=== PATIENT | male | born 2000 | race Caucasian/White ===

== ENCOUNTER 2021-03-13 11:18 | Inpatient (IN) | payer OTHER, SELFPAY ==
[2021-03-13 11:46] VITALS: BP 159/104; PULSE 92; RESP 16; TEMP 36.7; O2SAT 97; BMI 28.0
--- NOTE | 2021-03-13 12:02 | ED_ITS ---
HPI - Psych General Chief Complaint: Psychiatric Symptoms Stated Complaint: Manic/bipolar Time Seen by Provider: 03/13/21 11:54 Source: patient Mode of arrival: ambulatory Limitations: no limitations History of Present Illness HPI Narrative: Patient comes to the emergency room via EMS. Patient was seen today by [facility], he was Section 12 for concerns of having a manic episode. Patient denies suicidal homicidal ideation. Patient states that he has been taking his medications as prescribed. However, he recently had a dose of risperidone change. According to the patient, he was sent to the hospital because he was being too loud and having an anxiety attack Related Data Allergies Allergy/AdvReac Type Severity Reaction Status Date / Time No Known Allergies Allergy Verified 03/13/21 12:02 Review of Systems Review of Systems: Constitutional : No Weight loss, No Fever, No Chills, No Night Sweats, No Fatigue, No Malaise ENT/Mouth : No Hearing loss, No Ear Pain, No Nasal Congestion, No Sinus Pain, No Hoarseness, No sore throat, No Rhinorrhea, No Swallowing Difficulty Eyes: No Eye Pain, No Swelling, No Redness, No Foreign Body, No Discharge, No Vision Changes Cardiovascular : No Chest Pain, No SOB, No Dyspnea on Exertion, No Orthopnea, No Edema, No Palpitations Respiratory : No Cough, No Sputum, No Wheezing, No Smoke Exposure, No Dyspnea Gastrointestinal : No Nausea, No Vomiting, No Diarrhea, No Constipation, No abdominal Pain, No Hematochezia, No Melena Genitourinary : no irregular bleeding, No Dysuria, No Urinary Frequency, No Hematuria, No Urinary Incontinence, No Urgency, No Flank Pain, No Urinary Flow Changes, No Hesitancy Musculoskeletal : No joint pain, No Myalgias, No Joint Swelling Skin : No Skin Lesions, No rash Neuro : No Weakness, No Numbness, No Paresthesias, No Loss of Consciousness, No Dizziness, No Headache Psych : Complaining of anxiety, denies SI or HI Heme/Lymph: No Bruising, No Bleeding,No Lymphadenopathy Endocrine : No Polyuria, No Polydipsia, No Temperature Intolerance PMF Past Medical History Medical History (Updated 03/13/21 @ 13:38 by Kailee Hall MD) Bipolar disorder Social History Social History Advance Directives: No Advance Directives Information Provided: Yes Physical Exam Vital Signs: Vital Signs: Last Vital Signs Temp 98.1 F 03/13/21 11:46 Pulse 92 03/13/21 11:46 Resp 16 03/13/21 11:46 BP 159/104 H 03/13/21 11:46 Pulse Ox 97 03/13/21 11:46 BMI result Body Mass Index 28.0 Const: Other: Appearance: Alert. Oriented X3. No acute distress. Eyes: Pupils equal, round and reactive to light. ENT: Pharynx normal. Neck: Normal inspection. Neck supple. No lymph nodes noted. No crepitus CVS: Normal heart rate and rhythm. Pulses normal. Normal S1 and S2 Respiratory: No respiratory distress. Breath sounds normal. No Wheezing. No rales Abdomen: Soft and nontender. No rigidity. No distention. Skin: Skin warm and dry. Normal skin color. Normal skin turgor. Extremities: No lower extremity edema. No lower extremity edema. No Lacerations. No Rash Neuro: Oriented X 3. No motor deficit. No sensory deficit. Moving all exte rmities. No slurred speech. Cranial nerves 2-12 grossly intact Psych: Calm, cooperative, seems a bit anxious. Pressured speech, talking in tangents Course Course Course Narrative: [facility] pending. Physician of sedation started at 12:10 Patient's COVID test returned, patient is positive for COVID-19 MDM - Psych Lab Data Labs: Lab Results 03/13/21 Range/Units 12:24 COVID-19 ([facility]) Positive A (Negative) COVID-19 Clin Com See Note Discharge Plan Discharge Clinical Impression: Manic behavior, COVID-19 Patient Disposition: Still a Patient
--- NOTE | 2021-03-13 12:28 | PC.NURSE ---
pt section [address] [facility] due to concerns of pt experiencing manic episode. pt recently had a dose change of his Risperidone and reports having racing thoughts since the change. pt reports he has been compliant with taking all his prescriptive meds. pt seen by Dr. Hall Diogenes consult submitted. he denies SI/HI. pt pacing, denies pain. will continue to monitor.
[2021-03-13 12:39] LABS: COVID-19 Test Positive (Negative)
--- NOTE | 2021-03-13 13:40 | PC.NURSE ---
Pt COVID +. Dr. Hall, Care Team, Charge Nurse aware. Dr. Hall at pt's bedside.
--- NOTE | 2021-03-13 14:07 | PC.NURSE ---
pt asked to remain in his room, pt pacing in and out of his room, pt reminded of reason he was asked to remain in his room.
[2021-03-13] MEDS: LORazepam 1 MG TABLET 2 MG PO (14:22)
--- NOTE | 2021-03-13 14:25 | PC.NURSE ---
pt pacing throughout unit, reminded to stay in his room. pt offered med for anxiety. med given as documented. will continue to monitor.
[2021-03-13 18:33] VITALS: BP 148/91; PULSE 110; RESP 16; O2SAT 98
--- NOTE | 2021-03-13 18:33 | PC.NURSE ---
Addendum entered by Tisha Bartlett 03/13/21 18:34: Denies SI/HI Pt observer at bedside Original Note: Spoke to mother Svetlana (with permission of pt), updated on plan of care. Pt asleep mostly s/p Ativan given by prior RN
--- NOTE | 2021-03-13 19:38 | PC.NURSE ---
pt resting in stretcher w/o distress, wakes to voice. Respirations easy, n/l. skin w/d. will continue to monitor pt.
[2021-03-13 23:25] VITALS: BP 129/76; PULSE 84; RESP 18; O2SAT 98
--- NOTE | 2021-03-14 01:11 | PC.NURSE ---
med rec done and being approved by . Pt is requesting Risperdone. pt in NAD. will continue to monitor pt.
[2021-03-14] MEDS: traZODone HCL 50 MG TABLET PO ×2 (02:02→20:01)
[2021-03-14] MEDS: Melatonin 3 MG TABLET PO ×2 (02:02→20:00)
[2021-03-14] MEDS: risperiDONE 1 MG TABLET PO ×3 (02:02→20:00)
[2021-03-14] MEDS: hydrOXYzine HCL 25 MG TABLET PO ×3 (02:02→20:00)
--- NOTE | 2021-03-14 16:10 | PC.NURSE ---
called pharmacy for missing med metformin.
[2021-03-14] MEDS: metFORMIN HCl ER 500 MG TAB.ER.24H PO (18:22)
[2021-03-14 19:55] VITALS: BP 147/94; PULSE 110; RESP 19; TEMP 36.6; O2SAT 96
--- NOTE | 2021-03-14 23:23 | PC.NURSE ---
Pt ambulatory with steady, independent gait, offers no complaints of pain/discomfort.
--- NOTE | 2021-03-15 01:20 | PC.NURSE ---
Pt dancing in room at this time, offers no complaints/concerns.
[2021-03-15 04:08] VITALS: BP 129/71; PULSE 65; RESP 17; O2SAT 98
[2021-03-15 04:29] LABS: Amphetamine Screen Urine Not Detected (Not Detect); Barbiturates, Urine Not Detected (Not Detect); Benzodiazepines Screen Urine Not Detected (Not Detect); Cannabinoid Screen Urine Not Detected (Not Detect); Cocaine Screen Urine Not Detected (Not Detect); Fentanyl, urine POSITIVE (Not Detect); Opiate Screen Urine Not Detected (Not Detect); Phencyclidine Screen Urine Not Detected (Not Detect)
--- NOTE | 2021-03-15 06:17 | PC.NURSE ---
Per lonnie, pt has not slept throughout night. This RN advocating for additional meds to Dr Barton, this RN requesting additional meds to help tx kvng. Per Dr Barton, she will place orders for additional meds shortly
--- NOTE | 2021-03-15 07:58 | PC.NURSE ---
pt is awake, was pacing. Pleasant, redirectable. Plan is to transfer to pod for further care.
[2021-03-15] MEDS: hydrOXYzine HCL 25 MG TABLET PO ×2 (09:14→20:46)
[2021-03-15] MEDS: risperiDONE 1 MG TABLET PO (09:14)
--- NOTE | 2021-03-15 13:13 | PM.PSYCN ---
History of Present Illness Date of Service: 03/15/21 Chief Complaint: Manic/bipolar Reason for Consult: Medication Requesting physician: Kailee Hall Discussed with referring provider: Yes Sources of Information: patient interviewed, chart reviewed and crisis/core team assessment reviewed HPI Narrative: Amanda is a 21 y.o. Male who carries a dx of Bipolar I DO. He presented to [facility] ED on 03/13 via EMS after being evaluated by N crisis in the community and placed on a Section 12a for manic sx in context of med non-adherence, as pt stopped taking depakote and self decreased risperdal from 1 mg BID to risperdal 1 mg QHS. Per pt, he is in the hospital because he was being ?too loud? and he was having an anxiety attack. In the ED, pt is found to be pacing around, dancing. Pt reports stressors as his dad telling him he needs to enroll in college and get a job. Currently COVID positive. I evaluated the pt this afternoon and upon interview, he reports ?Mentally, I havent slept properly in the past 4 weeks.? Says he can sleep ?on and off,? and typically he sleeps every other night. Pt is found dancing in his room, energy is ?way too high.? Pt is tangential and easily distracted, starts discussing social media use unprompted, hypervebal. Pt endorses paranoid ideations, stating ?everyone is out to get me.? Initially says he self decreased risperdal due to it being back ordered, however also says he stopped depakote and went down in risperdal due to concerns with wt gain. Pt states he won?t stop dancing because he does not want to gain weight, as in the past he gained ?70 lbs in a month without even trying.? Says he is willing to re-start medications, as they ?calm me down.? Says ?I know im gonna have to take bipolar pills for rest of life so i dont have an outburst in public.? Denies hallucinations, however says ?I might have saw a ghost a year ago.? Mood is ?too high? and that ?I should be tired.? Pt endorses grandiose thoughts, stating ?its like I have super hall but not the right kind,? and believes he has the power of ?invisibility and mind reading.? Pt says he would like to be ?famous but for the right reasons.? Denies self harm or SI. Graduated [employer] h.[employer]., tried [employer] for college but couldnt finish any semester due to anxiety attacks.? Past Psychiatric History: -Pt has hx of IPLOC at [facility] 12/2019 and 02/2020. -Per [facility] crisis eval 02/15/20, pt presented with ?decompensated behaviors,? disposition was IPLOC. Evaluated 12/2019 due to ?responding to internal stimuli and not making sense.? Disposition was IPLOC. Medical Evaluation Reviewed: Yes [facility] Medical History (Updated 03/17/21 @ 11:55 by Majo Douglass NP) Bipolar disorder Narrative: -Pt says he takes metformin with antipsychotics because his dad has diabetes, however pt does not have a diagnosis of T2DM. -Pt is unemployed, says he has had difficulty sustaining employment and would like to be a dancer. However, says ?Im not mentally there to work a job.? Social History: -Pt lives with mom and sister (age 23), visits dad on weekends. Lived with both parents until age 7, then parents split up. -Graduated from [employer] school. He attended [employer] for 3 semesters, but says he did poorly in school and did not finish. Attributes this to anxiety and poor focus, ?I focused on the wrong things,? i.e. says he went ?viral on tik tok.? Had been computer science major. Substance History: -Denies substance or alcohol use Diagnostics Vital Signs (24Hr): Vital Signs - 24 hr 03/14/21 19:55 03/15/21 04:08 Temperature 97.9 F Pulse Rate 110 H 65 Respiratory Rate 19 17 Blood Pressure 147/94 H 129/71 Pulse Oximetry 96 98 BMI result Body Mass Index 28.0 Labs Results: 03/15/21 15:49 03/15/21 15:49 Labs: Laboratory Results - last 48 hr 03/15/21 03:57 Urine Opiates Screen Not Detected Urine Fentanyl Screen POSITIVE H Ur Barbiturates Screen Not Detected Ur Phencyclidine Scrn Not Detected Ur Amphetamines Screen Not Detected U Benzodiazepines Scrn Not Detected Urine Cocaine Screen Not Detected U Marijuana (THC) Screen Not Detected Mental Status Exam Mental Status Exam Narrative: A&O. Pt is found in ED pod, dancing, in hospital attire, good hygiene. Good eye contact, inattentive. No Tics or Tremors. Has increased psychomotor activity. No abnormal involuntary movements. Activated but cooperative, engaged. Has pressured speech, spontaneous with regular rate and rhythm, normal volume and prosody. No prolonged speech latency or dysarthria. Mood is ?too high,? affect is bright, activated. Denies SI/SIB/HI upon inquiry. Denies A/VH. Thoughts are tangential, racing, grandiose delusions. No known cognitive or memory impairment. Insight/ Judgment limited but adequate. Medications Medications Current Medications Hydroxyzine HCl (Hydroxyzine Hcl 25 Mg Tablet) 25 mg PO BID [facility] Last Admin: 03/15/21 09:14 Dose: 25 mg Documented by: Melatonin (Melatonin 3 Mg Tablet) 3 mg PO BEDTIME [facility] Last Admin: 03/14/21 20:00 Dose: 3 mg Documented by: Metformin HCl (Metformin Hcl Er 500 Mg Tab.Er.24h) 500 mg PO DAILY@1700 [facility] Last Admin: 03/14/21 18:22 Dose: 500 mg Documented by: Risperidone (Risperidone 1 Mg Tablet) 1 mg PO BID [facility] Last Admin: 03/15/21 09:14 Dose: 1 mg Documented by: Trazodone HCl (Trazodone Hcl 50 Mg Tablet) 50 mg PO BEDTIME [facility] Last Admin: 03/14/21 20:01 Dose: 50 mg Documented by: Allergies Allergies Allergy/AdvReac Type Severity Reaction Status Date / Time No Known Allergies Allergy Verified 03/13/21 12:02 Assessment & Plan Assessment & Plan (1) Bipolar 1 disorder: Status: Acute Code(s): F31.9 - Bipolar disorder, unspecified Assessment and Plan: Amanda is a 21 y.o. Male who carries a dx of Bipolar I DO. He presented to [facility] ED on 03/13 via EMS after being evaluated by N crisis in the community and placed on a Section 12a for manic sx in context of med non-adherence, as pt stopped taking depakote and self decreased risperdal from 1 mg BID to risperdal 1 mg QHS. Evonne requested for med management, as pt is currently being quarantined in ED BH pod with COVID 19 diagnosis. Plan: Pt is willing to restore previous med regimen to target sx of kvng. Will re-increase riserpdal to 2 mg QHS and re-start depakote ER 500 mg QAM. Ordered labs for CMP, CBC. Will order VPA level in 2-3 days. -Continue monitoring medically. Patient is currently medically cleared. -Consult requested for med management -Patient cannot leave AGAINST MEDICAL ADVICE. -Care Team evaluation for bed search initial treatments ordered collateral history needed ? I spent minutes with the patient and/or on the patient floor today, greater than?50% of which was spent counseling/coordinating care.
[2021-03-15 15:58] LABS: Basophils Percent Auto 0.3 % (0-2); Eosinophils Absolute Auto 0.1 X10*3/uL (0.0-0.4); Eosinophils Percent Auto 2.4 % (0-4); Hematocrit 45.6 % (42.0-52.0); Hemoglobin 16.2 g/dl (14.0-18.0); Imm Gran Abs Auto 0.01 X10*3/uL (0.00-0.03); Imm Gran Pct Auto 0.3 % (0.0-0.4); Lymphocytes Absolute Auto 1.3 X10*3/uL (1.2-4.9); MANUAL DIFF FLAG NO; Mean Corpuscular HGB Conc 35.5 g/dl (31.0-36.0); Mean Corpuscular Hemoglobin 29.8 pg (27.0-33.0); Mean Platelet Volume 10.7 fL (9.4-12.4); Monocytes Absolute Auto 0.6 X10*3/uL (0.1-1.2); Monocytes Percent Auto 17.9 % (2-11); Neutrophils Absolute Auto 1.4 x10*3/uL (2.0-8.3); Neutrophils Percent Auto 40.1 % (45-73); Platelet Count 236 X10*3/uL (160-400); Red Blood Count 5.43 X10*6/uL (4.60-5.80); Red Cell Distribution Width 12.1 % (11.0-16.0); White Blood Count 3.4 X10*3/uL (4.8-10.8)
[2021-03-15 16:17] LABS: Alanine Aminotransferase 44 U/L (0-40); Albumin Level 4.5 g/dL (3.5-5.0); Alkaline Phosphatase 90 U/L (39-117); Anion Gap 13 (12-20); Aspartate Amino Transferase 38 U/L (5-37); Bilirubin Total 0.7 mg/dL (0.0-1.0); Blood Urea Nitrogen 7 mg/dL (9-16); Calcium 10.2 mg/dL (8.4-10.2); Carbon Dioxide 25 mmol/L (22-29); Chloride 104 mmol/L (96-108); Creatinine Clr Calc Pharmacy 156.8; Estimated Glomerular Filt Rate > 60; Glucose Random 115 mg/dL (60-115); Potassium 4.1 mmol/L (3.3-5.1); Sodium 138 mmol/L (135-145); Total Protein 7.4 g/dL (6.5-8.0)
[2021-03-15 17:03] VITALS: BP 158/110; PULSE 105; TEMP 37.1; O2SAT 97
[2021-03-15] MEDS: metFORMIN HCl ER 500 MG TAB.ER.24H PO (17:27)
[2021-03-15] MEDS: Divalproex Sodium ER 500 MG TAB.ER.24H PO (20:45)
[2021-03-15] MEDS: risperiDONE 2 MG TABLET PO (20:46)
[2021-03-15] MEDS: Melatonin 3 MG TABLET PO (20:46)
[2021-03-15] MEDS: traZODone HCL 50 MG TABLET PO (20:46)
[2021-03-16 04:51] VITALS: BP 147/89; PULSE 112; RESP 18; TEMP 36.6; O2SAT 97
--- NOTE | 2021-03-16 05:58 | PC.NURSE ---
Patient slept through the night, no distress observed/reported, behavior cooperative and non concerning at this time, follows direction well, medication compliant, patient's disposition per [facility] is section 12 inpatient bed search, patient is still covid positive, no update on bed search, will continue to monitor.
[2021-03-16] MEDS: hydrOXYzine HCL 25 MG TABLET PO (08:07)
--- NOTE | 2021-03-16 08:10 | PC.NURSE ---
Pt received: Pt AOX4 and noted to be slightly anxious. Scheduled medications given at this time. Pt tolerated breakfast. Pt offers no complaints at this time. Pt remains section 12 and penidng bed search.
--- NOTE | 2021-03-16 14:14 | PC.NURSE ---
Pt's mother called for update: Svetlana ([phone])
[2021-03-16] MEDS: metFORMIN HCl ER 500 MG TAB.ER.24H PO (17:00)
[2021-03-16 20:02] LABS: COVID-19 Test Positive (Negative)
[2021-03-16 20:22] VITALS: BP 148/90; PULSE 97; TEMP 37.1; O2SAT 98
[2021-03-16] MEDS: risperiDONE 2 MG TABLET PO (20:46)
[2021-03-16] MEDS: Divalproex Sodium ER 500 MG TAB.ER.24H PO (20:46)
[2021-03-16] MEDS: Melatonin 3 MG TABLET PO (20:46)
[2021-03-16] MEDS: hydrOXYzine HCL 50 MG TABLET PO (20:46)
[2021-03-17 06:38] VITALS: BP 158/71; PULSE 84; RESP 16; TEMP 37.1; O2SAT 99
--- NOTE | 2021-03-17 07:20 | PC.NURSE ---
patient appeared to remain asleep at beginning of shift, respirations are even and unlabored, patient appears in no distress
[2021-03-17] MEDS: hydrOXYzine HCL 50 MG TABLET PO ×2 (08:22→20:25)
[2021-03-17 10:02] VITALS: BP 121/85; PULSE 81; RESP 14; O2SAT 93
[2021-03-17] MEDS: metFORMIN HCl ER 500 MG TAB.ER.24H PO (17:06)
[2021-03-17] MEDS: Divalproex Sodium ER 500 MG TAB.ER.24H PO (20:25)
[2021-03-17] MEDS: Melatonin 3 MG TABLET PO (20:25)
[2021-03-17] MEDS: risperiDONE 2 MG TABLET PO (20:25)
[2021-03-17] MEDS: LORazepam 1 MG TABLET 2 MG PO (20:25)
[2021-03-18 05:11] VITALS: BP 122/67; PULSE 65; RESP 16; TEMP 36.7; O2SAT 100
--- NOTE | 2021-03-18 05:26 | PC.NURSE ---
Patient slept through the night, no distress observed/reported, behavior non concerning and cooperative, medication compliant, VSS, appetite good, elimination intact, patient's disposition is section 12 inpatient bed search, no update on bed search due to patient being covid +, will continue to monitor.
--- NOTE | 2021-03-18 07:02 | PC.NURSE ---
patient appears to remain asleep at present, respirations are even and unlabored, patient appears in no distress
[2021-03-18] MEDS: hydrOXYzine HCL 50 MG TABLET PO ×2 (09:33→22:31)
[2021-03-18 14:11] VITALS: BP 116/76; PULSE 91; RESP 18; TEMP 36.7; O2SAT 96
[2021-03-18 17:00] VITALS: BP 133/85; PULSE 85; TEMP 36.4; O2SAT 96
[2021-03-18 17:43] LABS: Glucose, Whole Blood 85 mg/dL (60-115)
[2021-03-18] MEDS: metFORMIN HCl ER 500 MG TAB.ER.24H PO (17:46)
[2021-03-18] MEDS: Melatonin 3 MG TABLET PO (22:31)
[2021-03-18] MEDS: Divalproex Sodium ER 500 MG TAB.ER.24H PO (22:32)
[2021-03-18] MEDS: risperiDONE 2 MG TABLET PO (22:32)
--- NOTE | 2021-03-19 00:41 | PC.ADMIT ---
A single, white male aged 21 years was [facility] at 1512 following referral from [facility] and [facility]. Pt was assessed at [facility] respite and transported to [facility] ED via EMS and section 12 due to presenting in a manic state following recent stressors and a medication change. This pt's first admission here; pt reports prior admissions at [facility] and [facility] in 2019. Pt reported weight gain following starting risperdal and depakote; pt added that he had lost 30lbs intentionally since August/c of this weght gain. Pt reported an increase in kvng in January, and that he had a recent breakup with his boyfriend, his first significant relationship. Pt reported feeling trauma in his past related to his parents divorce at age 8 years and from witnessing the unexpected of his cat at around the same time. Pt reported moderate anxiety and depression. Pt said he has experienced rapid cycling of his mood while he has been in the hospital. Pt denied AH/VH and SI/HI. Pt said he can seek out staff for help. Pt said he was getting services from [facility] up until January. Pt sated he is interested in having a psychiatrist and therapist after discharge. Pt stated as he is 21 now, he wants to take responsibility for taking care of his Bipolar d/o. Pt expressed he would like to go back to school at [employer] for veterinary studies, but recognizes the importance of maintaining his illness to pursue his goals. Pt was calm ad cooperative during admission. Pt denies Etoh or substance issues, but HELMS was positive for Fentanyl. Pt denies medical issues at this time. Pt was found to be positive for Covid 19, but is asymptomatic at this time. Pt is resting in group room B on equipment observation. [id number] done, initial treatment plan done and admission orders obtained.
[2021-03-19 06:00] VITALS: BP 139/85; PULSE 90; RESP 16; TEMP 36.2; O2SAT 97
[2021-03-19] MEDS: hydrOXYzine HCL 50 MG TABLET PO ×2 (08:52→21:30)
[2021-03-19 09:40] LABS: Glucose, Whole Blood 80 mg/dL (60-115)
--- NOTE | 2021-03-19 10:34 | P.HPPS_ITS ---
HPI Date of Service: 03/19/21 Chief Complaint: psychiatric symptoms Sources of Information: patient interviewed, chart reviewed and crisis/core team assessment reviewed HPI Subjective Notes: Khan Warning and Conditional Voluntary Healthcare Proxy: No Guardianship: No Medical Problems Affecting Mental Status: Yes Narrative: Pt presented to ED with kvng.Pt was sectioned 12 after being evaluated by crisis. His mental staus may be effected by being covid positive. He reports he mixed up his medication and may have missed some doses. He verbalizes that when he takes his medications correctly he knows they help. pt is covid positive. He Past Psychiatric History: -Pt has hx of IPLOC at [facility] 12/2019 and 02/2020. -Per [facility] crisis eval 02/15/20, pt presented with ?decompensated behaviors,? disposition was IPLOC. Evaluated 12/2019 due to ?responding to internal stimuli and not making sense.? Disposition was IPLOC. Medical Evaluation Reviewed: Yes covid positive. [facility] Medical History (Updated 03/17/21 @ 11:55 by Majo Douglass NP) Bipolar disorder Narrative: no outpatient providers at this time he would like to have prescriebr and therapist Social History: -Pt lives with mom and sister (age 23), visits dad on weekends. Lived with both parents until age 7, then parents split up. -Graduated from [email or web address] school. He attended [employer] for 3 semesters, but says he did poorly in school and did not finish. Attributes this to anxiety and poor focus, ?I focused on the wrong things,? i.e. says he went ?viral on tik tok.? Had been computer science major. Substance History: denies Trauma History: denies Diagnostics Vital Signs (24Hr): Vital Signs - 24 hr 03/18/21 14:11 03/18/21 17:00 03/19/21 06:00 Temperature 98.1 F 97.5 F 97.1 F Pulse Rate 91 85 90 Respiratory Rate 18 16 Blood Pressure 116/76 133/85 139/85 Pulse Oximetry 96 96 97 BMI result Body Mass Index 28.0 Labs Results: 03/15/21 15:49 03/15/21 15:49 Labs: Laboratory Results - last 48 hr 03/18/21 03/19/21 16:58 09:07 POC Glucose 85 80 Meds/Allergies Meds Home Medications Acetaminophen (Acetaminophen 325 Mg Tablet) 650 mg PO Q6H PRN PRN Reason: Headache/Pain Mild Scale (1-3) Al Hydroxide/Mg Hydroxide (Magnesium Hydrox/Alum Hydrox 30 Ml Oral.Susp) 30 ml PO Q6H PRN PRN Reason: Heartburn/Nausea Divalproex Sodium (Divalproex Sodium Er 500 Mg Tab.Er.24h) 500 mg PO BEDTIME [facility] Last Admin: 03/18/21 22:32 Dose: 500 mg Documented by: Hydroxyzine HCl (Hydroxyzine Hcl 50 Mg Tablet) 50 mg PO BID [facility] Last Admin: 03/19/21 08:52 Dose: 50 mg Documented by: Lorazepam (Lorazepam 1 Mg Tablet) 2 mg PO BEDTIME PRN PRN Reason: agitation, anxiety Last Admin: 03/17/21 20:25 Dose: 2 mg Documented by: Magnesium Hydroxide (Milk Of Magnesia 30 Ml Oral.Susp) 30 ml PO DAILY PRN PRN Reason: Constipation Melatonin (Melatonin 3 Mg Tablet) 3 mg PO BEDTIME [facility] Last Admin: 03/18/21 22:31 Dose: 3 mg Documented by: Metformin HCl (Metformin Hcl Er 500 Mg Tab.Er.24h) 500 mg PO DAILY@1700 [facility] Last Admin: 03/18/21 17:46 Dose: 500 mg Documented by: Risperidone (Risperidone 2 Mg Tablet) 2 mg PO BEDTIME [facility] Last Admin: 03/18/21 22:32 Dose: 2 mg Documented by: Allergies Allergies Allergy/AdvReac Type Severity Reaction Status Date / Time No Known Allergies Allergy Verified 03/13/21 12:02 Mental Status Exam Mental Status Exam Narrative: A&O. Pt is sitting in hospital bed in group room B. He is alert and calm. He has mildly pressured speech. He is able to listen at times. and is able to be interrupted. good hygiene. Good eye contact, attentive. No Tics or Tremors. No abnormal involuntary movements. Activated but cooperative, engaged. Speech is spontaneous with regular rate and rhythm, normal volume and prosody. No prolonged speech latency or dysarthria. Mood is bright, activated. Denies SI/SIB/HI upon inquiry. Denies A/VH. Thoughts arelogical and coherent. He reports feeling safe and well taken care of on unti. No grandiose ideas expressed. No known cognitive or memory impairment. Insight/ Judgment limited but adequate. He is able to say he is better when on meds adn wants treatment Assessment & Plan Assessment & Plan (1) Bipolar 1 disorder: Status: Acute Code(s): F31.9 - Bipolar disorder, unspecified Assessment and Plan: Amanda is a 21 y.o. Male who carries a dx of Bipolar I DO. He presented to [facility] ED on 03/13 via EMS after being evaluated by N crisis in the community and pl aced on a Section 12a for manic sx in context of med non-adherence, as pt stopped taking depakote and self decreased risperdal from 1 mg BID to risperdal 1 mg QHS. Plan: CV 15 min checks on 1:1 due to in group room B for quarantine/isolation precautions riserpdal to 2 mg QHS depakote ER 500 mg QAM. Ordered labs for CMP, CBC, VPA level, A1C, lipid panel TSH aftercare planning with and team Continue monitoring medically. ? Patient educated on: diagnosis, medication risk/benefits and therapeutic strategies Informed Consent: understands and further education needed Reason for continued inpatient stay Substantial Risk for: inability to function, rapid decompensation and med/psych decompensation
[2021-03-19] MEDS: metFORMIN HCl ER 500 MG TAB.ER.24H PO (17:50)
[2021-03-19] MEDS: risperiDONE 2 MG TABLET PO (21:30)
[2021-03-19] MEDS: Divalproex Sodium ER 500 MG TAB.ER.24H PO (21:30)
[2021-03-19] MEDS: Melatonin 3 MG TABLET PO (21:30)
[2021-03-19 22:00] VITALS: BP 132/59; PULSE 83; TEMP 36.8; O2SAT 100
[2021-03-20] MEDS: hydrOXYzine HCL 50 MG TABLET PO ×2 (09:30→22:12)
[2021-03-20 15:00] VITALS: BP 120/66; PULSE 82; TEMP 36.3; O2SAT 99
[2021-03-20 17:22] LABS: Glucose, Whole Blood 104 mg/dL (60-115)
[2021-03-20 18:07] LABS: MANUAL DIFF FLAG NO
[2021-03-20] MEDS: metFORMIN HCl ER 500 MG TAB.ER.24H PO (18:26)
[2021-03-20 18:36] LABS: Alanine Aminotransferase 49 U/L (0-40); Albumin Level 4.3 g/dL (3.5-5.0); Alkaline Phosphatase 79 U/L (39-117); Anion Gap 10 (12-20); Aspartate Amino Transferase 24 U/L (5-37); Bilirubin Direct < 0.2 mg/dL (0.0-0.5); Bilirubin Total 0.3 mg/dL (0.0-1.0); Blood Urea Nitrogen 9 mg/dL (9-16); Calcium 9.9 mg/dL (8.4-10.2); Carbon Dioxide 31 mmol/L (22-29); Chloride 105 mmol/L (96-108); Cholesterol 123 mg/dL; Creatinine Clr Calc Pharmacy 149.5; Estimated Glomerular Filt Rate > 60; Glucose Random 94 mg/dL (60-115); HDL Cholesterol 32 mg/dL; LDL Cholesterol Calculated 71 mg/dl; Potassium 4.2 mmol/L (3.3-5.1); Sodium 142 mmol/L (135-145); Total Protein 6.9 g/dL (6.5-8.0); Triglycerides 103 mg/dL
[2021-03-20 18:37] LABS: Basophils Percent Auto 0.5 % (0-2); Eosinophils Absolute Auto 0.1 X10*3/uL (0.0-0.4); Eosinophils Percent Auto 2.3 % (0-4); Hematocrit 49.5 % (42.0-52.0); Hemoglobin 17.2 g/dl (14.0-18.0); Imm Gran Abs Auto 0.02 X10*3/uL (0.00-0.03); Imm Gran Pct Auto 0.5 % (0.0-0.4); Lymphocytes Absolute Auto 1.4 X10*3/uL (1.2-4.9); Lymphocytes Percent Auto 31.7 % (20-40); Mean Corpuscular HGB Conc 34.7 g/dl (31.0-36.0); Mean Corpuscular Hemoglobin 30.2 pg (27.0-33.0); Mean Corpuscular Volume 86.8 fL (80.0-98.0); Mean Platelet Volume 11.2 fL (9.4-12.4); Monocytes Absolute Auto 0.4 X10*3/uL (0.1-1.2); Monocytes Percent Auto 8.9 % (2-11); Neutrophils Absolute Auto 2.5 x10*3/uL (2.0-8.3); Neutrophils Percent Auto 56.1 % (45-73); Platelet Count 277 X10*3/uL (160-400); Red Cell Distribution Width 12.5 % (11.0-16.0); White Blood Count 4.4 X10*3/uL (4.8-10.8)
[2021-03-20 18:41] LABS: Valproate 52.2 mcg/mL (50.0-100.0)
[2021-03-20 19:58] LABS: COVID-19 Test Positive (Negative)
[2021-03-20] MEDS: Divalproex Sodium ER 500 MG TAB.ER.24H PO (22:12)
[2021-03-20] MEDS: Melatonin 3 MG TABLET PO (22:12)
[2021-03-20] MEDS: risperiDONE 2 MG TABLET PO (22:12)
[2021-03-20 22:23] VITALS: BP 128/82; PULSE 73; TEMP 36.1; O2SAT 97
[2021-03-21 03:34] LABS: Estimated Average Glucose 94 mg/dL; Hemoglobin A1c % 4.9 %
[2021-03-21 06:00] VITALS: BP 155/65; PULSE 75; RESP 14; TEMP 36.3; O2SAT 96
[2021-03-21] MEDS: hydrOXYzine HCL 50 MG TABLET PO ×2 (09:23→21:28)
[2021-03-21] MEDS: metFORMIN HCl ER 500 MG TAB.ER.24H PO (17:33)
[2021-03-21 17:55] LABS: Glucose, Whole Blood 77 mg/dL (60-115)
--- NOTE | 2021-03-21 20:05 | HO.PSYCHPN ---
Subjective Subjective Date of Service: 03/20/21 Reason For Visit: psychiatric symptoms Subjective Notes: Conditional Voluntary Healthcare Proxy: No Guardianship: No Medical Problems Affecting Mental Status: No Interim History: Pt remains in isolation and on one to one due to being COVID positive. Accepting medications, reports he feels he is doing OK-anxious to come out of precautions to join milieu, groups, and receive treatment with peers. Denies medication SE or issues. Medication Compliance: Yes Side effects from medications: No Attending Groups: No Review of Systems Acute medical concerns: Yes COVID +, asymptomatic Medical Review of Systems: unchanged Review of Systems Psychiatric: Reports anxiety, Reports difficulty concentrating and Reports mood swings Mental Status Exam Mental Status Exam Patient Appearance: Appropriate Patient Orientation: Person, Place, Time and Situation Level of Consciousness: Alert Patient Behavior: Talkative, Cooperative and Good Eye Contact Mood Description: Anxious and Apprehensive Affect Description: Anxious, Labile and Apprehensive Patient Cognition Impaired: No Ability to Follow Directions: Good Speech Pattern: Spontaneous Speech Memory Description: Intact Hallucinations: None Delusions: Not Present Perceptual Disturbances: Derealization Thought Process: Distracted Thought Content: positive for Perseveration Depressive Symptoms: Increased Anxiety, Diff. Making Decisions and Difficulty Concentrating Judgement: Fair Diagnostics Vital Signs (24Hr): Vital Signs - 24 hr 03/20/21 22:23 03/21/21 06:00 Temperature 96.9 F 97.4 F Pulse Rate 73 75 Respiratory Rate 14 Blood Pressure 128/82 155/65 H Pulse Oximetry 97 96 BMI result Body Mass Index 28.0 Labs Results: 03/20/21 18:02 03/20/21 18:02 Labs: Laboratory Results - last 48 hr 03/20/21 03/20/21 03/20/21 17:05 18:02 18:02 WBC 4.4 L RBC 5.70 Hgb 17.2 Hct 49.5 MCV 86.8 MCH 30.2 MCHC 34.7 RDW 12.5 Plt Count 277 MPV 11.2 Immature Gran % (Auto) 0.5 H Neut % (Auto) 56.1 Lymph % (Auto) 31.7 [place] % (Auto) 8.9 Eos % (Auto) 2.3 Baso % (Auto) 0.5 Lymph # (Auto) 1.4 [place] # (Auto) 0.4 Eos # (Auto) 0.1 Baso # (Auto) 0.0 Abs Immat Gran (auto) 0.02 Absolute Neuts (auto) 2.5 Absolute Nucleated RBC 0.000 Nucleated RBC % (auto) 0.0 Sodium 142 Potassium 4.2 Chloride 105 Carbon Dioxide 31 H Anion Gap 10 L BUN 9 Creatinine 0.85 Estim Creat Clear Calc 149.5 Estimated GFR > 60 POC Glucose 104 Random Glucose 94 Estimat Average Glucose Hemoglobin A1c % Calcium 9.9 Total Bilirubin 0.3 Direct Bilirubin < 0.2 AST 24 ALT 49 H Alkaline Phosphatase 79 Total Protein 6.9 Albumin 4.3 Triglycerides 103 Cholesterol 123 LDL Cholesterol, Calc 71 HDL Cholesterol 32 Valproic Acid 52.2 COVID-19 ([facility]) COVID-19 [employer] Com 03/20/21 03/20/21 03/21/21 18:02 19:40 17:48 WBC RBC Hgb Hct MCV MCH MCHC RDW Plt Count MPV Immature Gran % (Auto) Neut % (Auto) Lymph % (Auto) [place] % (Auto) Eos % (Auto) Baso % (Auto) Lymph # (Auto) [place] # (Auto) Eos # (Auto) Baso # (Auto) Abs Immat Gran (auto) Absolute Neuts (auto) Absolute Nucleated RBC Nucleated RBC % (auto) Sodium Potassium Chloride Carbon Dioxide Anion Gap BUN Creatinine Estim Creat Clear Calc Estimated GFR POC Glucose 77 Random Glucose Estimat Average Glucose 94 Hemoglobin A1c % 4.9 Calcium Total Bilirubin Direct Bilirubin AST ALT Alkaline Phosphatase Total Protein Albumin Triglycerides Cholesterol LDL Cholesterol, Calc HDL Cholesterol Valproic Acid COVID-19 ([facility]) Positive A COVID-19 [employer] Com See Note Medications Medications Current Medications Acetaminophen (Acetaminophen 325 Mg Tablet) 650 mg PO Q6H PRN PRN Reason: Headache/Pain Mild Scale (1-3) Al Hydroxide/Mg Hydroxide (Magnesium Hydrox/Alum Hydrox 30 Ml Oral.Susp) 30 ml PO Q6H PRN PRN Reason: Heartburn/Nausea Divalproex Sodium (Divalproex Sodium Er 500 Mg Tab.Er.24h) 500 mg PO BEDTIME [facility] Last Admin: 03/20/21 22:12 Dose: 500 mg Documented by: Hydroxyzine HCl (Hydroxyzine Hcl 50 Mg Tablet) 50 mg PO BID [facility] Last Admin: 03/21/21 09:23 Dose: 50 mg Documented by: Magnesium Hydroxide (Milk Of Magnesia 30 Ml Oral.Susp) 30 ml PO DAILY PRN PRN Reason: Constipation Melatonin (Melatonin 3 Mg Tablet) 3 mg PO BEDTIME [facility] Last Admin: 03/20/21 22:12 Dose: 3 mg Documented by: Metformin HCl (Metformin Hcl Er 500 Mg Tab.Er.24h) 500 mg PO DAILY@1700 [facility] Last Admin: 03/21/21 17:33 Dose: 500 mg Documented by: Risperidone (Risperidone 2 Mg Tablet) 2 mg PO BEDTIME [facility] Last Admin: 03/20/21 22:12 Dose: 2 mg Documented by: Allergies Allergies Allergy/AdvReac Type Severity Reaction Status Date / Time No Known Allergies Allergy Verified 03/13/21 12:02 Assessment & Plan Assessment & Plan (1) Bipolar 1 disorder: Status: Acute Code(s): F31.9 - Bipolar disorder, unspecified Assessment and Plan: Amanda is a 21 y.o. Male who carries a dx of Bipolar I DO. He presented to [facility] ED on 03/13 via EMS after being evaluated by N crisis in the community and placed on a Section 12a for manic sx in context of med non-adherence, as pt stopped taking depakote and self decreased risperdal from 1 mg BID to risperdal 1 mg QHS. Plan: CV 15 min checks on 1:1 due to in group room B for quarantine/isolation precautions riserpdal to 2 mg QHS depakote ER 500 mg QAM. Ordered labs for CMP, CBC, VPA level, A1C, lipid panel TSH aftercare planning with and team Continue monitoring medically. 03/20/21 Continue current plan of care Tentative completion of quarantine 03/23/21. Pt anxiously awaits. Support, educate. ? I spent 25 minutes with the patient and/or on the patient floor today, greater than?50% of which was spent counseling/coordinating care. Patient educated on: therapeutic strategies Informed Consent: further education needed Reason for contiued inpatient stay Substantial Risk for: inability to function and rapid decompensation
[2021-03-21] MEDS: risperiDONE 2 MG TABLET PO (21:28)
[2021-03-21] MEDS: Melatonin 3 MG TABLET PO (21:28)
[2021-03-21] MEDS: Divalproex Sodium ER 500 MG TAB.ER.24H PO (21:28)
[2021-03-22 06:00] VITALS: BP 137/72; PULSE 88; RESP 16; TEMP 36.3; O2SAT 98
[2021-03-22] MEDS: hydrOXYzine HCL 50 MG TABLET PO ×2 (09:22→21:28)
--- NOTE | 2021-03-22 16:49 | P.PNPSI_ITS ---
Subjective Subjective Date of Service: 03/21/21 Reason For Visit: psychiatric symptoms Subjective Notes: Conditional Voluntary Healthcare Proxy: No Guardianship: No Medical Problems Affecting Mental Status: No Interim History: Discussed that bipolar disorder is new to him since diagnosis in 2019. Reports that at baseline I am very quiet . States he cut back on medications to conserve as PCP would not refill and out pt team terminated him from the agency. Very willing and ready to learn-anxious to leave quarantine on 03/23/21. Medication Compliance: Yes Side effects from medications: No Attending Groups: No Review of Systems Acute medical concerns: Yes COVID quarantine to end 03/23/21. Medical Review of Systems: unchanged Review of Systems: denies symptoms. Review of Systems Psychiatric: Reports anxiety, Reports difficulty concentrating and Reports mood swings Mental Status Exam Mental Status Exam Patient Appearance: Appropriate Patient Orientation: Person, Place, Time and Situation Level of Consciousness: Alert Patient Behavior: Talkative, Cooperative and Good Eye Contact Mood Description: Anxious and Apprehensive Affect Description: Anxious, Labile and Apprehensive Patient Cognition Impaired: No Ability to Follow Directions: Good Speech Pattern: Spontaneous Speech Memory Description: Intact Hallucinations: None Delusions: Not Present Perceptual Disturbances: Derealization Thought Process: Distracted Thought Content: positive for Perseveration Depressive Symptoms: Increased Anxiety, Diff. Making Decisions and Difficulty Concentrating Judgement: Fair Diagnostics Vital Signs (24Hr): Vital Signs - 24 hr 03/22/21 06:00 Temperature 97.4 F Pulse Rate 88 Respiratory Rate 16 Blood Pressure 137/72 Pulse Oximetry 98 BMI result Body Mass Index 28.0 Labs Results: 03/20/21 18:02 03/20/21 18:02 Labs: Laboratory Results - last 48 hr 03/20/21 03/20/21 03/20/21 17:05 18:02 18:02 WBC 4.4 L RBC 5.70 Hgb 17.2 Hct 49.5 MCV 86.8 MCH 30.2 MCHC 34.7 RDW 12.5 Plt Count 277 MPV 11.2 Immature Gran % (Auto) 0.5 H Neut % (Auto) 56.1 Lymph % (Auto) 31.7 [place] % (Auto) 8.9 Eos % (Auto) 2.3 Baso % (Auto) 0.5 Lymph # (Auto) 1.4 [place] # (Auto) 0.4 Eos # (Auto) 0.1 Baso # (Auto) 0.0 Abs Immat Gran (auto) 0.02 Absolute Neuts (auto) 2.5 Absolute Nucleated RBC 0.000 Nucleated RBC % (auto) 0.0 Sodium 142 Potassium 4.2 Chloride 105 Carbon Dioxide 31 H Anion Gap 10 L BUN 9 Creatinine 0.85 Estim Creat Clear Calc 149.5 Estimated GFR > 60 POC Glucose 104 Random Glucose 94 Estimat Average Glucose Hemoglobin A1c % Calcium 9.9 Total Bilirubin 0.3 Direct Bilirubin < 0.2 AST 24 ALT 49 H Alkaline Phosphatase 79 Total Protein 6.9 Albumin 4.3 Triglycerides 103 Cholesterol 123 LDL Cholesterol, Calc 71 HDL Cholesterol 32 Valproic Acid 52.2 COVID-19 ([facility]) COVID-19 [employer] Com 03/20/21 03/20/21 03/21/21 18:02 19:40 17:48 WBC RBC Hgb Hct MCV MCH MCHC RDW Plt Count MPV Immature Gran % (Auto) Neut % (Auto) Lymph % (Auto) [place] % (Auto) Eos % (Auto) Baso % (Auto) Lymph # (Auto) [place] # (Auto) Eos # (Auto) Baso # (Auto) Abs Immat Gran (auto) Absolute Neuts (auto) Absolute Nucleated RBC Nucleated RBC % (auto) Sodium Potassium Chloride Carbon Dioxide Anion Gap BUN Creatinine Estim Creat Clear Calc Estimated GFR POC Glucose 77 Random Glucose Estimat Average Glucose 94 Hemoglobin A1c % 4.9 Calcium Total Bilirubin Direct Bilirubin AST ALT Alkaline Phosphatase Total Protein Albumin Triglycerides Cholesterol LDL Cholesterol, Calc HDL Cholesterol Valproic Acid COVID-19 ([facility]) Positive A COVID-19 [employer] Com See Note Medications Medications Current Medications Acetaminophen (Acetaminophen 325 Mg Tablet) 650 mg PO Q6H PRN PRN Reason: Headache/Pain Mild Scale (1-3) Al Hydroxide/Mg Hydroxide (Magnesium Hydrox/Alum Hydrox 30 Ml Oral.Susp) 30 ml PO Q6H PRN PRN Reason: Heartburn/Nausea Divalproex Sodium (Divalproex Sodium Er 500 Mg Tab.Er.24h) 500 mg PO BEDTIME [facility] Last Admin: 03/21/21 21:28 Dose: 500 mg Documented by: Hydroxyzine HCl (Hydroxyzine Hcl 50 Mg Tablet) 50 mg PO BID [facility] Last Admin: 03/22/21 09:22 Dose: 50 mg Documented by: Magnesium Hydroxide (Milk Of Magnesia 30 Ml Oral.Susp) 30 ml PO DAILY PRN PRN Reason: Constipation Melatonin (Melatonin 3 Mg Tablet) 3 mg PO BEDTIME [facility] Last Admin: 03/21/21 21:28 Dose: 3 mg Documented by: Metformin HCl (Metformin Hcl Er 500 Mg Tab.Er.24h) 500 mg PO DAILY@1700 [facility] Last Admin: 03/21/21 17:33 Dose: 500 mg Documented by: Risperidone (Risperidone 2 Mg Tablet) 2 mg PO BEDTIME [facility] Last Admin: 03/21/21 21:28 Dose: 2 mg Documented by: Allergies Allergies Allergy/AdvReac Type Severity Reaction Status Date / Time No Known Allergies Allergy Verified 03/13/21 12:02 Assessment & Plan Assessment & Plan (1) Bipolar 1 disorder: Status: Acute Code(s): F31.9 - Bipolar disorder, unspecified Assessment and Plan: Amanda is a 21 y.o. Male who carries a dx of Bipolar I DO. He presented to [facility] on 03/13 via EMS after being evaluated by N crisis in the community and placed on a Section 12a for manic sx in context of med non-adherence, as pt stopped taking depakote and self decreased risperdal from 1 mg BID to risperdal 1 mg QHS. Plan: CV 15 min checks on 1:1 due to in group room B for quarantine/isolation precautions riserpdal to 2 mg QHS depakote ER 500 mg QAM. Ordered labs for CMP, CBC, VPA level, A1C, lipid panel TSH aftercare planning with SW and team Continue monitoring medically. 03/20/21 Continue current plan of care Tentative completion of quarantine 03/23/21. Pt anxiously awaits. Support, educate. 03/21/21 Continue current plan of care. ? I spent 30 minutes with the patient and/or on the patient floor today, greater than?50% of which was spent counseling/coordinating care. Patient educated on: diagnosis Informed Consent: further education needed Reason for contiued inpatient stay Substantial Risk for: inability to function and rapid decompensation
[2021-03-22] MEDS: metFORMIN HCl ER 500 MG TAB.ER.24H PO (17:41)
[2021-03-22 18:00] VITALS: BP 133/81; PULSE 77; RESP 20; TEMP 36.4; O2SAT 96
--- NOTE | 2021-03-22 18:33 | HO.PSYCHPN ---
Subjective Subjective Date of Service: 03/22/21 Reason For Visit: psychiatric symptoms Subjective Notes: Conditional Voluntary Healthcare Proxy: No Guardianship: No Medical Problems Affecting Mental Status: No Interim History: Pt reports a good day. Anxious to leave quarantine on 03/23. Team has talked with mother who would like pt to have education on [place]-pt was given a handout from [place] to review Medication Compliance: Yes Side effects from medications: No Attending Groups: No Review of Systems Acute medical concerns: No Denies sx of COVID. Remains in quarantine Medical Review of Systems: unchanged Review of Systems Psychiatric: Reports anxiety, Reports difficulty concentrating and Reports mood swings Mental Status Exam Mental Status Exam Patient Appearance: Appropriate Patient Orientation: Person, Place, Time and Situation Level of Consciousness: Alert Patient Behavior: Talkative, Cooperative and Good Eye Contact Mood Description: Anxious and Apprehensive Affect Description: Anxious, Labile and Apprehensive Patient Cognition Impaired: No Ability to Follow Directions: Good Speech Pattern: Spontaneous Speech Memory Description: Intact Hallucinations: None Delusions: Not Present Perceptual Disturbances: Derealization Thought Process: Distracted Thought Content: positive for Perseveration Depressive Symptoms: Increased Anxiety, Diff. Making Decisions and Difficulty Concentrating Judgement: Fair Diagnostics Vital Signs (24Hr): Vital Signs - 24 hr 03/22/21 06:00 Temperature 97.4 F Pulse Rate 88 Respiratory Rate 16 Blood Pressure 137/72 Pulse Oximetry 98 BMI result Body Mass Index 28.0 Labs Results: 03/20/21 18:02 03/20/21 18:02 Labs: Laboratory Results - last 48 hr 03/20/21 03/20/21 03/20/21 18:02 18:02 18:02 WBC 4.4 L RBC 5.70 Hgb 17.2 Hct 49.5 MCV 86.8 MCH 30.2 MCHC 34.7 RDW 12.5 Plt Count 277 MPV 11.2 Immature Gran % (Auto) 0.5 H Neut % (Auto) 56.1 Lymph % (Auto) 31.7 [place] % (Auto) 8.9 Eos % (Auto) 2.3 Baso % (Auto) 0.5 Lymph # (Auto) 1.4 [place] # (Auto) 0.4 Eos # (Auto) 0.1 Baso # (Auto) 0.0 Abs Immat Gran (auto) 0.02 Absolute Neuts (auto) 2.5 Absolute Nucleated RBC 0.000 Nucleated RBC % (auto) 0.0 Sodium 142 Potassium 4.2 Chloride 105 Carbon Dioxide 31 H Anion Gap 10 L BUN 9 Creatinine 0.85 Estim Creat Clear Calc 149.5 Estimated GFR > 60 POC Glucose Random Glucose 94 Estimat Average Glucose 94 Hemoglobin A1c % 4.9 Calcium 9.9 Total Bilirubin 0.3 Direct Bilirubin < 0.2 AST 24 ALT 49 H Alkaline Phosphatase 79 Total Protein 6.9 Albumin 4.3 Triglycerides 103 Cholesterol 123 LDL Cholesterol, Calc 71 HDL Cholesterol 32 Valproic Acid 52.2 COVID-19 ([facility]) COVID-19 [employer] 03/20/21 03/21/21 19:40 17:48 WBC RBC Hgb Hct MCV MCH MCHC RDW Plt Count MPV Immature Gran % (Auto) Neut % (Auto) Lymph % (Auto) [place] % (Auto) Eos % (Auto) Baso % (Auto) Lymph # (Auto) [place] # (Auto) Eos # (Auto) Baso # (Auto) Abs Immat Gran (auto) Absolute Neuts (auto) Absolute Nucleated RBC Nucleated RBC % (auto) Sodium Potassium Chloride Carbon Dioxide Anion Gap BUN Creatinine Estim Creat Clear Calc Estimated GFR POC Glucose 77 Random Glucose Estimat Average Glucose Hemoglobin A1c % Calcium Total Bilirubin Direct Bilirubin AST ALT Alkaline Phosphatase Total Protein Albumin Triglycerides Cholesterol LDL Cholesterol, Calc HDL Cholesterol Valproic Acid COVID-19 ([facility]) Positive A COVID-19 [employer] Com See Note Medications Medications Current Medications Acetaminophen (Acetaminophen 325 Mg Tablet) 650 mg PO Q6H PRN PRN Reason: Headache/Pain Mild Scale (1-3) Al Hydroxide/Mg Hydroxide (Magnesium Hydrox/Alum Hydrox 30 Ml Oral.Susp) 30 ml PO Q6H PRN PRN Reason: Heartburn/Nausea Divalproex Sodium (Divalproex Sodium Er 500 Mg Tab.Er.24h) 500 mg PO BEDTIME [facility] Last Admin: 03/21/21 21:28 Dose: 500 mg Documented by: Hydroxyzine HCl (Hydroxyzine Hcl 50 Mg Tablet) 50 mg PO BID [facility] Last Admin: 03/22/21 09:22 Dose: 50 mg Documented by: Magnesium Hydroxide (Milk Of Magnesia 30 Ml Oral.Susp) 30 ml PO DAILY PRN PRN Reason: Constipation Melatonin (Melatonin 3 Mg Tablet) 3 mg PO BEDTIME [facility] Last Admin: 03/21/21 21:28 Dose: 3 mg Documented by: Metformin HCl (Metformin Hcl Er 500 Mg Tab.Er.24h) 500 mg PO DAILY@1700 [facility] Last Admin: 03/22/21 17:41 Dose: 500 mg Documented by: Risperidone (Risperidone 2 Mg Tablet) 2 mg PO BEDTIME [facility] Last Admin: 03/21/21 21:28 Dose: 2 mg Documented by: Allergies Allergies Allergy/AdvReac Type Severity Reaction Status Date / Time No Known Allergies Allergy Verified 03/13/21 12:02 Assessment & Plan Assessment & Plan (1) Bipolar 1 disorder: Status: Acute Code(s): F31.9 - Bipolar disorder, unspecified Assessment and Plan: Amanda is a 21 y.o. Male who carries a dx of Bipolar I DO. He presented to [facility] on 03/13 via EMS after being evaluated by N crisis in the community and placed on a Section 12a for manic sx in context of med non-adherence, as pt stopped taking depakote and self decreased risperdal from 1 mg BID to risperdal 1 mg QHS. Plan: CV 15 min checks on 1:1 due to in group room B for quarantine/isolation precautions riserpdal to 2 mg QHS depakote ER 500 mg QAM. Ordered labs for CMP, CBC, VPA level, A1C, lipid panel TSH aftercare planning with and team Continue monitoring medically. 03/20/21 Continue current plan of care Tentative completion of quarantine 03/23/21. Pt anxiously awaits. Support, educate. 03/21/21 Continue current plan of care. 03/22/21 Continue plan of care Quarantine to end 03/23/21. Integrate pt into milieu. ? I spent 30 minutes with the patient and/or on the patient floor today, greater than?50% of which was spent counseling/coordinating care. Patient educated on: medication risk/benefits Informed Consent: further education needed Reason for contiued inpatient stay Substantial Risk for: inability to function and rapid decompensation
[2021-03-22] MEDS: risperiDONE 2 MG TABLET PO (21:28)
[2021-03-22] MEDS: Divalproex Sodium ER 500 MG TAB.ER.24H PO (21:28)
[2021-03-22] MEDS: Melatonin 3 MG TABLET PO (21:28)
[2021-03-22 22:05] LABS: Glucose, Whole Blood 94 mg/dL (60-115)
[2021-03-23 06:00] VITALS: BP 134/72; PULSE 74; RESP 16; TEMP 36.3; O2SAT 97
[2021-03-23 06:14] LABS: COVID-19 Test Positive (Negative); IDNOW Serial# 9DD0AD1C
[2021-03-23 07:00] VITALS: BMI 27.8
[2021-03-23] MEDS: hydrOXYzine HCL 50 MG TABLET PO ×2 (09:42→19:48)
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
[2021-03-23] MEDS: metFORMIN HCl ER 500 MG TAB.ER.24H PO (17:31)
[2021-03-23 18:00] VITALS: BP 147/82; PULSE 107; TEMP 36.7
[2021-03-23] MEDS: risperiDONE 2 MG TABLET PO (19:48)
[2021-03-23] MEDS: Lithium Carbonate 300 MG CAPSULE PO (19:48)
[2021-03-23] MEDS: Divalproex Sodium ER 500 MG TAB.ER.24H PO (19:48)
[2021-03-23 23:00] LABS: Glucose, Whole Blood 89 mg/dL (60-115)
[2021-03-23] MEDS: Melatonin 3 MG TABLET PO (23:45)
[2021-03-24 06:00] VITALS: BP 124/86; PULSE 88; RESP 14; TEMP 36.6; O2SAT 96
[2021-03-24] MEDS: hydrOXYzine HCL 50 MG TABLET PO ×2 (08:27→20:13)
[2021-03-24 09:30] LABS: Thyroid Stimulating Hormone 3.28 uIU/mL (0.32-4.0)
--- NOTE | 2021-03-24 14:28 | PC.NURSE ---
blood sugar not done. ate breakfast.
--- NOTE | 2021-03-24 16:28 | P.PNPSI_ITS ---
Subjective Subjective Date of Service: 03/24/21 Reason For Visit: psychiatric symptoms Subjective Notes: Conditional Voluntary Healthcare Proxy: No Guardianship: No Medical Problems Affecting Mental Status: No Interim History: Tolerated initial dose of [place]. TSH 3.4 Appears anxious in milieu-orienting to non quarantine strucutre. Medication Compliance: Yes Side effects from medications: No Attending Groups: Intermittent Review of Systems Acute medical concerns: No Medical Review of Systems: unchanged Review of Systems Reports behavioral changes Psychiatric: Reports abnormal sleep pattern, Reports anxiety, Reports behavioral changes, Reports difficulty concentrating, Reports anhedonia, Reports mood swings and Reports paranoia Mental Status Exam Mental Status Exam Patient Appearance: Appropriate Patient Orientation: Person, Place, Time and Situation Level of Consciousness: Alert Patient Behavior: Talkative, Cooperative and Good Eye Contact Mood Description: Anxious and Apprehensive Affect Description: Anxious, Labile and Apprehensive Patient Cognition Impaired: No Ability to Follow Directions: Good Speech Pattern: Spontaneous Speech Memory Description: Intact Hallucinations: None Delusions: Not Present Perceptual Disturbances: Derealization Thought Process: Distracted Thought Content: positive for Perseveration Depressive Symptoms: Increased Anxiety, Diff. Making Decisions and Difficulty Concentrating Judgement: Fair Diagnostics Vital Signs (24Hr): Vital Signs - 24 hr 03/23/21 18:00 03/24/21 06:00 Temperature 98.1 F 98 F Pulse Rate 107 H 88 Respiratory Rate 14 Blood Pressure 147/82 H 124/86 Pulse Oximetry 96 BMI result Body Mass Index 27.8 Labs Results: 03/20/21 18:02 03/20/21 18:02 Labs: Laboratory Results - last 48 hr 03/22/21 03/23/21 03/23/21 21:25 06:00 22:56 POC Glucose 94 89 TSH COVID-19 ([facility]) Positive A COVID-19 Clin Com See Note 03/24/21 03/24/21 08:14 08:14 POC Glucose TSH 3.28 3.40 COVID-19 ([facility]) COVID-19 Clin Com Medications Medications Current Medications Acetaminophen (Acetaminophen 325 Mg Tablet) 650 mg PO Q6H PRN PRN Reason: Headache/Pain Mild Scale (1-3) Al Hydroxide/Mg Hydroxide (Magnesium Hydrox/Alum Hydrox 30 Ml Oral.Susp) 30 ml PO Q6H PRN PRN Reason: Heartburn/Nausea Divalproex Sodium (Divalproex Sodium Er 500 Mg Tab.Er.24h) 500 mg PO BEDTIME [facility] Last Admin: 03/23/21 19:48 Dose: 500 mg Documented by: Hydroxyzine HCl (Hydroxyzine Hcl 50 Mg Tablet) 50 mg PO BID [facility] Last Admin: 03/24/21 08:27 Dose: 50 mg Documented by: [place] Carbonate ([place] Carbonate 300 Mg Capsule) 300 mg PO BEDTIME [facility] Last Admin: 03/23/21 19:48 Dose: 300 mg Documented by: Magnesium Hydroxide (Milk Of Magnesia 30 Ml Oral.Susp) 30 ml PO DAILY PRN PRN Reason: Constipation Melatonin (Melatonin 3 Mg Tablet) 3 mg PO BEDTIME [facility] Last Admin: 03/23/21 23:45 Dose: 3 mg Documented by: Metformin HCl (Metformin Hcl Er 500 Mg Tab.Er.24h) 500 mg PO DAILY@1700 [facility] Last Admin: 03/23/21 17:31 Dose: 500 mg Documented by: Risperidone (Risperidone 2 Mg Tablet) 2 mg PO BEDTIME [facility] Last Admin: 03/23/21 19:48 Dose: 2 mg Documented by: Allergies Allergies Allergy/AdvReac Type Severity Reaction Status Date / Time No Known Allergies Allergy Verified 03/13/21 12:02 Assessment & Plan Assessment & Plan (1) Bipolar 1 disorder: Status: Acute Code(s): F31.9 - Bipolar disorder, unspecified Assessment and Plan: Amanda is a 21 y.o. Male who carries a dx of Bipolar I DO. He [place] [facility] [place] after being evaluated by N crisis in the community and placed on a Section 12a for manic sx in context of med non-adherence, as pt stopped taking depakote and self decreased risperdal from 1 mg BID to risperdal 1 mg QHS. Plan: CV 15 min checks on 1:1 due to in group room B for quarantine/isolation precautions riserpdal to 2 mg QHS depakote ER 500 mg QAM. Ordered labs for CMP, CBC, VPA level, A1C, lipid panel TSH aftercare planning with SW and team Continue monitoring medically. 03/20/21 Continue current plan of care Tentative completion of quarantine 03/23/21. Pt anxiously awaits. Support, educate. 03/21/21 Continue current plan of care. 03/22/21 Continue plan of care Quarantine to end 03/23/21. Integrate pt into milieu. 03/23/21 Review of bipolar disorder with pt-treatment options. [place] 300 mg hs. 03/24/20 Increase [place] to 300 mg bid. Support, educate, process concerns Aftercare planning. ? I spent 20 minutes with the patient and/or on the patient floor today, greater than?50% of which was spent counseling/coordinating care. Reason for contiued inpatient stay Substantial Risk for: inability to function and rapid decompensation
[2021-03-24 17:32] VITALS: BP 171/85; PULSE 114; TEMP 37.1
[2021-03-24] MEDS: metFORMIN HCl ER 500 MG TAB.ER.24H PO (17:43)
[2021-03-24] MEDS: Melatonin 3 MG TABLET PO (20:13)
[2021-03-24] MEDS: risperiDONE 2 MG TABLET PO (20:13)
[2021-03-24] MEDS: Lithium Carbonate 300 MG CAPSULE PO (20:13)
[2021-03-24] MEDS: Divalproex Sodium ER 500 MG TAB.ER.24H PO (20:13)
[2021-03-25 06:00] VITALS: BP 139/80; PULSE 103; RESP 14; TEMP 37; O2SAT 97
[2021-03-25] MEDS: hydrOXYzine HCL 50 MG TABLET PO ×2 (08:18→20:23)
--- NOTE | 2021-03-25 09:16 | P.PNPSI_ITS ---
Subjective Subjective Date of Service: 03/25/21 Reason For Visit: psychiatric symptoms Subjective Notes: Conditional Voluntary Interim History: Pt notes that he is better in terms of symptoms of kvng. He notes that he was not sleeping, had a lot of energy, talkative. He reports his sleep has improved. He reports he has less racing thoughts. He denies SI/HI. He reports anxiety related to going back home. He asks for assistance with medications at home from his parents. Per nursing, pt visible, social with select peers. Vital signs- wnl. He denies any pain. No side effects related to medications. Medication Compliance: Yes Side effects from medications: No Attending Groups: Intermittent Review of Systems Review of Systems Constitutional : No Weight loss, No Fever, No Chills, No Night Sweats, No Fatigue, No Malaise ENT/Mouth : No Hearing loss, No Ear Pain, No Nasal Congestion, No Sinus Pain, No Hoarseness, No sore throat, No Rhinorrhea, No Swallowing Difficulty Eyes: No Eye Pain, No Swelling, No Redness, No Foreign Body, No Discharge, No Vision Changes Cardiovascular : No Chest Pain, No SOB, No Dyspnea on Exertion, No Orthopnea, No Edema, No Palpitations Respiratory : No Cough, No Sputum, No Wheezing, No Smoke Exposure, No Dyspnea Gastrointestinal : No Nausea, No Vomiting, No Diarrhea, No Constipation, No abdominal Pain, No Hematochezia, No Melena Genitourinary : no irregular bleeding, No Dysuria, No Urinary Frequency, No Hematuria, No Urinary Incontinence, No Urgency, No Flank Pain, No Urinary Flow Changes, No Hesitancy Musculoskeletal : No joint pain, No Myalgias, No Joint Swelling Skin : No Skin Lesions, No rash Neuro : No Weakness, No Numbness, No Paresthesias, No Loss of Consciousness, No Dizziness, Denies Headache Psych : Reports he feels calmer and safe on unit, denies SI or HI Heme/Lymph: No Bruising, No Bleeding,No Lymphadenopathy Endocrine : No Polyuria, No Polydipsia, No Temperature Intolerance Reports behavioral changes Psychiatric: Reports abnormal sleep pattern, Reports anxiety, Reports behavioral changes, Reports difficulty concentrating, Reports anhedonia, Reports mood swings and Reports paranoia Mental Status Exam Mental Status Exam Narrative: A&O x 3. He is pleasant, cooperative, good eye contact. Casually groomed, good hygiene in NAD. No agitation or retardation noted. No Tics or Tremors. No abnormal involuntary movements.Speech is spontaneous with regular rate and rhythm, normal volume and prosody. No prolonged speech latency or d ysarthria. Mood is good, affect is congruent, anxious but not labile. Denies SI/SIB/HI upon inquiry. Denies A/VH- does not appear internally preoccupied. Thoughts process is mostly linear, tangential at times. Thought content: no signs of psychosis, looking forward to return home with parents, in agreement to continue OP psych tx. No grandiose ideas expressed. No signs of cognitive or memory impairment on conversational testing but not formally tested. Insight/ Judgment x fair x 2- improving. Diagnostics Vital Signs (24Hr): Vital Signs - 24 hr 03/25/21 18:00 03/26/21 06:00 Temperature 98.2 F 97.4 F Pulse Rate 111 H 100 Respiratory Rate 18 Blood Pressure 154/91 H 119/64 Pulse Oximetry 98 98 BMI result Body Mass Index 27.8 Labs Results: 03/20/21 18:02 03/20/21 18:02 Labs: Laboratory Results - last 48 hr 03/24/21 03/24/21 03/25/21 08:14 08:14 22:10 POC Glucose 109 TSH 3.28 3.40 Medications Medications Current Medications Acetaminophen (Acetaminophen 325 Mg Tablet) 650 mg PO Q6H PRN PRN Reason: Headache/Pain Mild Scale (1-3) Al Hydroxide/Mg Hydroxide (Magnesium Hydrox/Alum Hydrox 30 Ml Oral.Susp) 30 ml PO Q6H PRN PRN Reason: Heartburn/Nausea Divalproex Sodium (Divalproex Sodium Er 500 Mg Tab.Er.24h) 500 mg PO BEDTIME [facility] Last Admin: 03/25/21 20:23 Dose: 500 mg Documented by: Hydroxyzine HCl (Hydroxyzine Hcl 50 Mg Tablet) 50 mg PO BID [facility] Last Admin: 03/26/21 08:27 Dose: 50 mg Documented by: [place] Carbonate ([place] Carbonate 300 Mg Capsule) 300 mg PO BEDTIME [facility] Last Admin: 03/25/21 20:23 Dose: 300 mg Documented by: Magnesium Hydroxide (Milk Of Magnesia 30 Ml Oral.Susp) 30 ml PO DAILY PRN PRN Reason: Constipation Melatonin (Melatonin 3 Mg Tablet) 3 mg PO BEDTIME [facility] Last Admin: 03/25/21 20:23 Dose: 3 mg Documented by: Metformin HCl (Metformin Hcl Er 500 Mg Tab.Er.24h) 500 mg PO DAILY@1700 [facility] Last Admin: 03/25/21 18:28 Dose: 500 mg Documented by: Risperidone (Risperidone 2 Mg Tablet) 2 mg PO BEDTIME [facility] Last Admin: 03/25/21 20:23 Dose: 2 mg Documented by: Allergies Allergies Allergy/AdvReac Type Severity Reaction Status Date / Time No Known Allergies Allergy Verified 03/13/21 12:02 Assessment & Plan Assessment & Plan (1) Bipolar 1 disorder: Status: Acute Code(s): F31.9 - Bipolar disorder, unspecified Assessment and Plan: Amanda is a 21 y.o. Male who carries a dx of Bipolar I DO. He presented to [facility] [place] [facility] on 03/13 via EMS after being evaluated by N crisis in the community and placed on a Section 12a for manic sx in context of med non-adherence, as pt stopped taking depakote and self decreased risperdal from 1 mg BID to risperdal 1 mg QHS. Plan: CV 15 min checks on 1:1 due to in group room B for quarantine/isolation precautions riserpdal to 2 mg QHS depakote ER 500 mg QAM. Ordered labs for CMP, CBC, VPA level, A1C, lipid panel TSH aftercare planning with SW and team Continue monitoring medically. 03/20/21 Continue current plan of care Tentative completion of quarantine 03/23/21. Pt anxiously awaits. Support, educate. 03/21/21 Continue current plan of care. 03/22/21 Continue plan of care Quarantine to end 03/23/21. Integrate pt into milieu. 03/23/21 Review of bipolar disorder with pt-treatment options. [place] 300 mg hs. 03/24/21 Increase [place] to 300 mg bid. Support, educate, process concerns Aftercare planning. ? 03/25/21- continue current medications.? I spent minutes with the patient and/or on the patient floor today, greater than?50% of which was spent counseling/coordinating care. Reason for contiued inpatient stay Substantial Risk for: inability to function
[2021-03-25 18:00] VITALS: BP 154/91; PULSE 111; RESP 18; TEMP 36.8; O2SAT 98
[2021-03-25] MEDS: metFORMIN HCl ER 500 MG TAB.ER.24H PO (18:28)
[2021-03-25] MEDS: Melatonin 3 MG TABLET PO (20:23)
[2021-03-25] MEDS: risperiDONE 2 MG TABLET PO (20:23)
[2021-03-25] MEDS: Divalproex Sodium ER 500 MG TAB.ER.24H PO (20:23)
[2021-03-25] MEDS: Lithium Carbonate 300 MG CAPSULE PO (20:23)
[2021-03-25 22:15] LABS: Glucose, Whole Blood 109 mg/dL (60-115)
[2021-03-26 06:00] VITALS: BP 119/64; PULSE 100; TEMP 36.3; O2SAT 98
[2021-03-26] MEDS: hydrOXYzine HCL 50 MG TABLET PO ×2 (08:27→20:44)
--- NOTE | 2021-03-26 11:31 | HO.PSYCHPN ---
Subjective Subjective Date of Service: 03/26/21 Reason For Visit: psychiatric symptoms Subjective Notes: Conditional Voluntary Interim History: Pt has been visible in the unit, has attended some groups. He reports his sleep has improved. He reports he has less racing thoughts. He denies SI/HI. He reports anxiety related to going back home. He asks for assistance with medications at home from his parents. Per nursing, pt visible, social with select peers. Vital signs- wnl. He denies any pain. No side effects related to medications. Review of Systems Review of Systems Constitutional : No Weight loss, No Fever, No Chills, No Night Sweats, No Fatigue, No Malaise ENT/Mouth : No Hearing loss, No Ear Pain, No Nasal Congestion, No Sinus Pain, No Hoarseness, No sore throat, No Rhinorrhea, No Swallowing Difficulty Eyes: No Eye Pain, No Swelling, No Redness, No Foreign Body, No Discharge, No Vision Changes Cardiovascular : No Chest Pain, No SOB, No Dyspnea on Exertion, No Orthopnea, No Edema, No Palpitations Respiratory : No Cough, No Sputum, No Wheezing, No Smoke Exposure, No Dyspnea Gastrointestinal : No Nausea, No Vomiting, No Diarrhea, No Constipation, No abdominal Pain, No Hematochezia, No Melena Genitourinary : no irregular bleeding, No Dysuria, No Urinary Frequency, No Hematuria, No Urinary Incontinence, No Urgency, No Flank Pain, No Urinary Flow Changes, No Hesitancy Musculoskeletal : No joint pain, No Myalgias, No Joint Swelling Skin : No Skin Lesions, No rash Neuro : No Weakness, No Numbness, No Paresthesias, No Loss of Consciousness, No Dizziness, Denies Headache Psych : Reports he feels calmer and safe on unit, denies SI or HI Heme/Lymph: No Bruising, No Bleeding,No Lymphadenopathy Endocrine : No Polyuria, No Polydipsia, No Temperature Intolerance Reports behavioral changes Psychiatric: Reports abnormal sleep pattern, Reports anxiety, Reports behavioral changes, Reports difficulty concentrating, Reports anhedonia, Reports mood swings and Reports paranoia Mental Status Exam Mental Status Exam Narrative: A&O x 3. He is pleasant, cooperative, good eye contact. Casually groomed, good hygiene in NAD. No agitation or retardation noted. No Tics or Tremors. No abnormal involuntary movements.Speech is spontaneous with regular rate and rhythm, normal volume and prosody. No prolonged speech latency or dysarthria. Mood is good, affect is congruent, anxious but not labile. Denies SI/SIB/HI upon inquiry. Denies A/VH- does not appear internally preoccupied. Thoughts process is mostly linear, tangential at times. Thought content: no signs of psychosis, looking forward to return home with parents, in agreement to continue OP psych tx. No grandiose ideas expressed. No signs of cognitive or memory impairment on conversational testing but not formally tested. Insight/ Judgment x fair x 2- improving. Diagnostics Vital Signs (24Hr): Vital Signs - 24 hr 03/25/21 18:00 03/26/21 06:00 Temperature 98.2 F 97.4 F Pulse Rate 111 H 100 Respiratory Rate 18 Blood Pressure 154/91 H 119/64 Pulse Oximetry 98 98 BMI result Body Mass Index 27.8 Labs Results: 03/20/21 18:02 03/20/21 18:02 Labs: Laboratory Results - last 48 hr 03/25/21 22:10 POC Glucose 109 Medications Medications Current Medications Acetaminophen (Acetaminophen 325 Mg Tablet) 650 mg PO Q6H PRN PRN Reason: Headache/Pain Mild Scale (1-3) Al Hydroxide/Mg Hydroxide (Magnesium Hydrox/Alum Hydrox 30 Ml Oral.Susp) 30 ml PO Q6H PRN PRN Reason: Heartburn/Nausea Divalproex Sodium (Divalproex Sodium Er 500 Mg Tab.Er.24h) 500 mg PO BEDTIME [facility] Last Admin: 03/25/21 20:23 Dose: 500 mg Documented by: Hydroxyzine HCl (Hydroxyzine Hcl 50 Mg Tablet) 50 mg PO BID [facility] Last Admin: 03/26/21 08:27 Dose: 50 mg Documented by: [place] Carbonate ([place] Carbonate 300 Mg Capsule) 300 mg PO BEDTIME [facility] Last Admin: 03/25/21 20:23 Dose: 300 mg Documented by: Magnesium Hydroxide (Milk Of Magnesia 30 Ml Oral.Susp) 30 ml PO DAILY PRN PRN Reason: Constipation Melatonin (Melatonin 3 Mg Tablet) 3 mg PO BEDTIME [facility] Last Admin: 03/25/21 20:23 Dose: 3 mg Documented by: Metformin HCl (Metformin Hcl Er 500 Mg Tab.Er.24h) 500 mg PO DAILY@1700 [facility] Last Admin: 03/25/21 18:28 Dose: 500 mg Documented by: Risperidone (Risperidone 2 Mg Tablet) 2 mg PO BEDTIME [facility] Last Admin: 03/25/21 20:23 Dose: 2 mg Documented by: Allergies Allergies Allergy/AdvReac Type Severity Reaction Status Date / Time No Known Allergies Allergy Verified 03/13/21 12:02 Assessment & Plan Assessment & Plan (1) Bipolar 1 disorder: Status: Acute Code(s): F31.9 - Bipolar disorder, unspecified Assessment and Plan: Amanda is a 21 y.o. Male who carries a dx of Bipolar I DO. He presented to [facility] [place] [facility] on 03/13 via EMS after being evaluated by N crisis in the community and placed on a Section 12a for manic sx in context of med non-adherence, as pt stopped taking depakote and self decreased risperdal from 1 mg BID to risperdal 1 mg QHS. Plan: CV 15 min checks on 1:1 due to in group room B for quarantine/isolation precautions riserpdal to 2 mg QHS depakote ER 500 mg QAM. Ordered labs for CMP, CBC, VPA level, A1C, lipid panel TSH aftercare planning with SW and team Continue monitoring medically. 03/20/21 Continue current plan of care Tentative completion of quarantine 03/23/21. Pt anxiously awaits. Support, educate. 03/21/21 Continue current plan of care. 03/22/21 Continue plan of care Quarantine to end 03/23/21. Integrate pt into milieu. 03/23/21 Review of bipolar disorder with pt-treatment options. [place] 300 mg hs. 03/24/21 Increase [place] to 300 mg bid. Support, educate, process concerns Aftercare planning. ? 03/25/21- continue current medications.? I spent minutes with the patient and/or on the patient floor today, greater than?50% of which was spent counseling/coordinating care. Reason for contiued inpatient stay Substantial Risk for: inability to function
[2021-03-26] MEDS: metFORMIN HCl ER 500 MG TAB.ER.24H PO (17:16)
[2021-03-26 18:00] VITALS: PULSE 96; TEMP 36.6
[2021-03-26] MEDS: risperiDONE 2 MG TABLET PO (20:43)
[2021-03-26] MEDS: Lithium Carbonate 300 MG CAPSULE PO (20:43)
[2021-03-26] MEDS: Melatonin 3 MG TABLET PO (20:44)
[2021-03-26] MEDS: Divalproex Sodium ER 500 MG TAB.ER.24H PO (20:44)
[2021-03-27 06:00] VITALS: BP 147/72; PULSE 100; RESP 14; TEMP 36.7; O2SAT 99
[2021-03-27] MEDS: hydrOXYzine HCL 50 MG TABLET PO ×2 (08:16→20:43)
[2021-03-27 08:47] LABS: Creatinine Clr Calc Pharmacy 137.5; Estimated Glomerular Filt Rate > 60
--- NOTE | 2021-03-27 12:34 | P.PNPSI_ITS ---
Subjective Subjective Date of Service: 03/27/21 Reason For Visit: psychiatric symptoms Subjective Notes: Conditional Voluntary Healthcare Proxy: No Guardianship: No Medical Problems Affecting Mental Status: No Interim History: Pt experiencing anxiety. Unable to express himself completely verbally he reports, states he has no thoughts to mention however appears overwhelmed with intrusive thoughts while attempting to discuss sx. Medication Compliance: Yes Side effects from medications: No Attending Groups: Intermittent Review of Systems Acute medical concerns: No Medical Review of Systems: unchanged Review of Systems Review of Systems Yes all other systems are reviewed and are negative Reports behavioral changes and Reports confusion Psychiatric: Reports abnormal sleep pattern, Reports anxiety, Reports behavioral changes, Reports confusion, Reports depression, Reports difficulty concentrating, Reports hopelessness, Reports anhedonia, Reports paranoia and Reports hallucinations Mental Status Exam Mental Status Exam Patient Appearance: Appropriate Patient Orientation: Person, Place, Time and Situation Level of Consciousness: Alert Patient Behavior: Talkative, Cooperative, Anxious, Avoidant, Distractible and Good Eye Contact Mood Description: Anxious Affect Description: Anxious Patient Cognition Impaired: No Ability to Follow Directions: Good Speech Pattern: Spontaneous Speech Memory Description: Remote Impaired and Episodic Impaired Hallucinations: None Delusions: Not Present Perceptual Disturbances: Depersonalization Thought Process: Distracted and Rumination Thought Content: positive for Racing, positive for Circumstantial, positive for Perseveration, positive for Thought Blocking and positive for Suicidal Ideation (denies) Depressive Symptoms: Increased Anxiety and Difficulty Concentrating Judgement: Fair Diagnostics Vital Signs (24Hr): Vital Signs - 24 hr 03/26/21 18:00 03/27/21 06:00 Temperature 97.8 F 98.1 F Pulse Rate 96 100 Respiratory Rate 14 Blood Pressure 147/72 H Pulse Oximetry 99 BMI result Body Mass Index 27.8 Labs Results: 03/20/21 18:02 03/27/21 08:08 Labs: Laboratory Results - last 48 hr 03/25/21 03/27/21 22:10 08:08 Creatinine 0.92 Estim Creat Clear Calc 137.5 Estimated GFR > 60 POC Glucose 109 Medications Medications Current Medications Acetaminophen (Acetaminophen 325 Mg Tablet) 650 mg PO Q6H PRN PRN Reason: Headache/Pain Mild Scale (1-3) Al Hydroxide/Mg Hydroxide (Magnesium Hydrox/Alum Hydrox 30 Ml Oral.Susp) 30 ml PO Q6H PRN PRN Reason: Heartburn/Nausea Divalproex Sodium (Divalproex Sodium Er 500 Mg Tab.Er.24h) 500 mg PO BEDTIME [facility] Last Admin: 03/26/21 20:44 Dose: 500 mg Documented by: Hydroxyzine HCl (Hydroxyzine Hcl 50 Mg Tablet) 50 mg PO BID [facility] Last Admin: 03/27/21 08:16 Dose: 50 mg Documented by: [place] Carbonate ([place] Carbonate 300 Mg Capsule) 300 mg PO BID [facility] Lorazepam (Lorazepam 0.5 Mg Tablet) 0.5 mg PO BID [facility] Magnesium Hydroxide (Milk Of Magnesia 30 Ml Oral.Susp) 30 ml PO DAILY PRN PRN Reason: Constipation Melatonin (Melatonin 3 Mg Tablet) 3 mg PO BEDTIME [facility] Last Admin: 03/26/21 20:44 Dose: 3 mg Documented by: Metformin HCl (Metformin Hcl Er 500 Mg Tab.Er.24h) 500 mg PO DAILY@1700 [facility] Last Admin: 03/26/21 17:16 Dose: 500 mg Documented by: Quetiapine Fumarate (Quetiapine Fumarate 50 Mg Tablet) 50 mg PO BEDTIME [facility] Risperidone (Risperidone 2 Mg Tablet) 2 mg PO BEDTIME [facility] Last Admin: 03/26/21 20:43 Dose: 2 mg Documented by: Allergies Allergies Allergy/AdvReac Type Severity Reaction Status Date / Time No Known Allergies Allergy Verified 03/13/21 12:02 Assessment & Plan Assessment & Plan (1) Bipolar 1 disorder: Status: Acute Code(s): F31.9 - Bipolar disorder, unspecified Assessment and Plan: Amanda is a 21 y.o. Male who carries a dx of Bipolar I DO. He [place] [facility] [place] after being evaluated by N crisis in the community and placed on a Section 12a for manic sx in context of med non-adherence, as pt stopped taking depakote and self decreased risperdal from 1 mg BID to risperdal 1 mg QHS. Plan: CV 15 min checks on 1:1 due to in group room B for quarantine/isolation precautions riserpdal to 2 mg QHS depakote ER 500 mg QAM. Ordered labs for CMP, CBC, VPA level, A1C, lipid panel TSH aftercare planning with SW and team Continue monitoring medically. 03/20/21 Continue current plan of care Tentative completion of quarantine 03/23/21. Pt anxiously awaits. Support, educate. 03/21/21 Continue current plan of care. 03/22/21 Continue plan of care Quarantine to end 03/23/21. Integrate pt into milieu. 03/23/21 Review of bipolar disorder with pt-treatment options. [place] 300 mg hs. 03/24/21 Increase [place] to 300 mg bid. Support, educate, process concerns Aftercare planning. ? 03/25/21- continue current medications.? 03/27/21- Pt reporting anxiety, poor sleep, difficulty with expression. 1. Lorazepam 0.5 mg bid 2. Increase [place] to 300 mg bid 3. Seroquel 50 mg hs 4. Trazodone 50 mg HS prn insomnia, MR x1. I spent 30 minutes with the patient and/or on the patient floor today, greater than?50% of which was spent counseling/coordinating care. Patient educated on: medication risk/benefits and therapeutic strategies Informed Consent: further education needed Reason for contiued inpatient stay Substantial Risk for: inability to function and rapid decompensation
[2021-03-27] MEDS: LORazepam 0.5 MG TABLET PO ×2 (13:17→20:46)
[2021-03-27] MEDS: metFORMIN HCl ER 500 MG TAB.ER.24H PO (16:45)
[2021-03-27 17:04] VITALS: BP 149/77; PULSE 100; TEMP 36.8; O2SAT 97
[2021-03-27] MEDS: risperiDONE 2 MG TABLET PO (20:43)
[2021-03-27] MEDS: Divalproex Sodium ER 500 MG TAB.ER.24H PO (20:43)
[2021-03-27] MEDS: Melatonin 3 MG TABLET PO (20:44)
[2021-03-27] MEDS: QUEtiapine Fumarate 50 MG TABLET PO (20:45)
[2021-03-27] MEDS: Lithium Carbonate 300 MG CAPSULE PO (20:45)
[2021-03-27] MEDS: traZODone HCL 50 MG TABLET PO (21:07)
[2021-03-28 06:00] VITALS: BP 121/59; PULSE 85; RESP 14; TEMP 36.6; O2SAT 99
[2021-03-28] MEDS: Lithium Carbonate 300 MG CAPSULE PO ×2 (08:55→21:57)
[2021-03-28] MEDS: hydrOXYzine HCL 50 MG TABLET PO ×2 (08:56→21:57)
[2021-03-28] MEDS: LORazepam 0.5 MG TABLET PO ×2 (08:56→21:57)
[2021-03-28] MEDS: metFORMIN HCl ER 500 MG TAB.ER.24H PO (16:30)
[2021-03-28 18:00] VITALS: BP 131/68; PULSE 102; TEMP 36.8; O2SAT 98
[2021-03-28] MEDS: QUEtiapine Fumarate 50 MG TABLET PO (21:57)
[2021-03-28] MEDS: Melatonin 3 MG TABLET PO (21:57)
[2021-03-28] MEDS: risperiDONE 2 MG TABLET PO (21:57)
[2021-03-28] MEDS: Divalproex Sodium ER 500 MG TAB.ER.24H PO (21:58)
[2021-03-28 22:00] VITALS: BP 138/63; PULSE 98; RESP 16; TEMP 37.1; O2SAT 100
[2021-03-28] MEDS: traZODone HCL 50 MG TABLET PO (22:05)
[2021-03-29 06:00] VITALS: BP 146/67; PULSE 94; RESP 16; TEMP 36.6; O2SAT 98
[2021-03-29] MEDS: Lithium Carbonate 300 MG CAPSULE PO ×2 (08:55→21:24)
[2021-03-29] MEDS: hydrOXYzine HCL 50 MG TABLET PO ×2 (08:55→21:23)
[2021-03-29] MEDS: LORazepam 0.5 MG TABLET PO ×2 (08:55→21:23)
--- NOTE | 2021-03-29 09:49 | HO.PSYCHPN ---
Subjective Subjective Date of Service: 03/28/21 Reason For Visit: psychiatric symptoms Subjective Notes: Conditional Voluntary Healthcare Proxy: No Guardianship: No Medical Problems Affecting Mental Status: No Interim History: Reports he is tolerating medication changes. Reports a decrease in anxiety. Denies SE. Medication Compliance: Yes Side effects from medications: No Attending Groups: Intermittent Review of Systems Acute medical concerns: No Medical Review of Systems: unchanged Review of Systems Review of Systems Yes all other systems are reviewed and are negative Reports behavioral changes and Reports confusion Psychiatric: Reports abnormal sleep pattern, Reports anxiety, Reports behavioral changes, Reports confusion, Reports depression, Reports difficulty concentrating, Reports hopelessness, Reports anhedonia, Reports paranoia and Reports hallucinations Mental Status Exam Mental Status Exam Patient Appearance: Appropriate Patient Orientation: Person, Place, Time and Situation Level of Consciousness: Alert Patient Behavior: Talkative, Cooperative, Anxious, Avoidant, Distractible and Good Eye Contact Mood Description: Anxious Affect Description: Anxious Patient Cognition Impaired: No Ability to Follow Directions: Good Speech Pattern: Spontaneous Speech Memory Description: Remote Impaired and Episodic Impaired Hallucinations: None Delusions: Not Present Perceptual Disturbances: Depersonalization Thought Process: Distracted and Rumination Thought Content: positive for Racing, positive for Circumstantial, positive for Perseveration, positive for Thought Blocking and positive for Suicidal Ideation (denies) Depressive Symptoms: Increased Anxiety and Difficulty Concentrating Judgement: Fair Diagnostics Vital Signs (24Hr): Vital Signs - 24 hr 03/28/21 18:00 03/28/21 22:00 03/29/21 06:00 Temperature 98.3 F 98.8 F 97.8 F Pulse Rate 102 H 98 94 Respiratory Rate 16 16 Blood Pressure 131/68 138/63 146/67 H Pulse Oximetry 98 100 98 BMI result Body Mass Index 27.8 Labs Results: 03/20/21 18:02 03/27/21 08:08 Medications Medications Current Medications Acetaminophen (Acetaminophen 325 Mg Tablet) 650 mg PO Q6H PRN PRN Reason: Headache/Pain Mild Scale (1-3) Al Hydroxide/Mg Hydroxide (Magnesium Hydrox/Alum Hydrox 30 Ml Oral.Susp) 30 ml PO Q6H PRN PRN Reason: Heartburn/Nausea Divalproex Sodium (Divalproex Sodium Er 500 Mg Tab.Er.24h) 500 mg PO BEDTIME [facility] Last Admin: 03/28/21 21:58 Dose: 500 mg Documented by: Hydroxyzine HCl (Hydroxyzine Hcl 50 Mg Tablet) 50 mg PO BID [facility] Last Admin: 03/29/21 08:55 Dose: 50 mg Documented by: [place] Carbonate ([place] Carbonate 300 Mg Capsule) 300 mg PO BID [facility] Last Admin: 03/29/21 08:55 Dose: 300 mg Documented by: Lorazepam (Lorazepam 0.5 Mg Tablet) 0.5 mg PO BID [facility] Last Admin: 03/29/21 08:55 Dose: 0.5 mg Documented by: Magnesium Hydroxide (Milk Of Magnesia 30 Ml Oral.Susp) 30 ml PO DAILY PRN PRN Reason: Constipation Melatonin (Melatonin 3 Mg Tablet) 3 mg PO BEDTIME [facility] Last Admin: 03/28/21 21:57 Dose: 3 mg Documented by: Metformin HCl (Metformin Hcl Er 500 Mg Tab.Er.24h) 500 mg PO DAILY@1700 [facility] Last Admin: 03/28/21 16:30 Dose: 500 mg Documented by: Quetiapine Fumarate (Quetiapine Fumarate 50 Mg Tablet) 50 mg PO BEDTIME [facility] Last Admin: 03/28/21 21:57 Dose: 50 mg Documented by: Risperidone (Risperidone 2 Mg Tablet) 2 mg PO BEDTIME [facility] Last Admin: 03/28/21 21:57 Dose: 2 mg Documented by: Trazodone HCl (Trazodone Hcl 50 Mg Tablet) 50 mg PO BEDTIME PRN PRN Reason: insomnia Last Admin: 03/28/21 22:05 Dose: 50 mg Documented by: Allergies Allergies Allergy/AdvReac Type Severity Reaction Status Date / Time No Known Allergies Allergy Verified 03/13/21 12:02 Assessment & Plan Assessment & Plan (1) Bipolar 1 disorder: Status: Acute Code(s): F31.9 - Bipolar disorder, unspecified Assessment and Plan: Amanda is a 21 y.o. Male who carries a dx of Bipolar I DO. He presented to [facility] [place] [facility] on 03/13 via EMS after being evaluated by N crisis in the community and placed on a Section 12a for manic sx in context of med non-adherence, as pt stopped taking depakote and self decreased risperdal from 1 mg BID to risperdal 1 mg QHS. Plan: CV 15 min checks on 1:1 due to in group room B for quarantine/isolation precautions riserpdal to 2 mg QHS depakote ER 500 mg QAM. Ordered labs for CMP, CBC, VPA level, A1C, lipid panel TSH aftercare planning with SW and team Continue monitoring medically. 03/20/21 Continue current plan of care Tentative completion of quarantine 03/23/21. Pt anxiously awaits. Support, educate. 03/21/21 Continue current plan of care. 03/22/21 Continue plan of care Quarantine to end 03/23/21. Integrate pt into milieu. 03/23/21 Review of bipolar disorder with pt-treatment options. [place] 300 mg hs. 03/24/21 Increase [place] to 300 mg bid. Support, educate, process concerns Aftercare planning. ? 03/25/21- continue current medications.? 03/28/21- Tolerating medication changes of 03/27/21. No changes today. Encourage milieu and group participation. I spent 20 minutes with the patient and/or on the patient floor today, greater than?50% of which was spent counseling/coordinating care. Patient educated on: medication risk/benefits and therapeutic strategies Informed Consent: further education needed Reason for contiued inpatient stay Substantial Risk for: rapid decompensation
--- NOTE | 2021-03-29 14:47 | P.PNPSI_ITS ---
Subjective Subjective Date of Service: 03/29/21 Reason For Visit: psychiatric symptoms Subjective Notes: Conditional Voluntary Healthcare Proxy: No Guardianship: No Medical Problems Affecting Mental Status: No Interim History: Anxiety = 6, attended group. Discussed with pt concerns about care- the anxiety is decreased, I worry about keeping it down. Pt wanting to discuss discharge for 03/31-agrees that PHP would be a good idea to increase his group psychotherapy presence. Discussed elevated BP's-willing to trial low dose antihypertensive as sx have been relatively consistent since admission. Reports he is tolerating regime and is not experiencing any side effects. Medication Compliance: Yes Side effects from medications: No Attending Groups: Yes Review of Systems Acute medical concerns: No Medical Review of Systems: unchanged Review of Systems Psychiatric: Reports abnormal sleep pattern, Reports anxiety, Reports depression, Reports difficulty concentrating and Reports suicidal ideation (denies) Mental Status Exam Mental Status Exam Patient Appearance: Appropriate Patient Orientation: Person, Place, Time and Situation Level of Consciousness: Alert Patient Behavior: Talkative, Cooperative, Anxious, Distractible and Good Eye Contact Mood Description: Anxious Affect Description: Anxious Patient Cognition Impaired: No Ability to Follow Directions: Good Speech Pattern: Spontaneous Speech Memory Description: Remote Impaired and Episodic Impaired Hallucinations: None Delusions: Not Present Perceptual Disturbances: Depersonalization Thought Process: Distracted and Rumination Thought Content: positive for Racing, positive for Circumstantial, positive for Perseveration, positive for Thought Blocking and positive for Suicidal Ideation (denies) Depressive Symptoms: Increased Anxiety and Difficulty Concentrating Judgement: Fair Diagnostics Vital Signs (24Hr): Vital Signs - 24 hr 03/28/21 18:00 03/28/21 22:00 03/29/21 06:00 Temperature 98.3 F 98.8 F 97.8 F Pulse Rate 102 H 98 94 Respiratory Rate 16 16 Blood Pressure 131/68 138/63 146/67 H Pulse Oximetry 98 100 98 BMI result Body Mass Index 27.8 Labs Results: 03/20/21 18:02 03/27/21 08:08 Medications Medications Current Medications Acetaminophen (Acetaminophen 325 Mg Tablet) 650 mg PO Q6H PRN PRN Reason: Headache/Pain Mild Scale (1-3) Al Hydroxide/Mg Hydroxide (Magnesium Hydrox/Alum Hydrox 30 Ml Oral.Susp) 30 ml PO Q6H PRN PRN Reason: Heartburn/Nausea Divalproex Sodium (Divalproex Sodium Er 500 Mg Tab.Er.24h) 500 mg PO BEDTIME [facility] Last Admin: 03/28/21 21:58 Dose: 500 mg Documented by: Hydroxyzine HCl (Hydroxyzine Hcl 50 Mg Tablet) 50 mg PO BID [facility] Last Admin: 03/29/21 08:55 Dose: 50 mg Documented by: [place] Carbonate ([place] Carbonate 300 Mg Capsule) 300 mg PO BID [facility] Last Admin: 03/29/21 08:55 Dose: 300 mg Documented by: Lorazepam (Lorazepam 0.5 Mg Tablet) 0.5 mg PO BID [facility] Last Admin: 03/29/21 08:55 Dose: 0.5 mg Documented by: Magnesium Hydroxide (Milk Of Magnesia 30 Ml Oral.Susp) 30 ml PO DAILY PRN PRN Reason: Constipation Melatonin (Melatonin 3 Mg Tablet) 3 mg PO BEDTIME [facility] Last Admin: 03/28/21 21:57 Dose: 3 mg Documented by: Metformin HCl (Metformin Hcl Er 500 Mg Tab.Er.24h) 500 mg PO DAILY@1700 [facility] Last Admin: 03/28/21 16:30 Dose: 500 mg Documented by: Quetiapine Fumarate (Quetiapine Fumarate 50 Mg Tablet) 50 mg PO BEDTIME [facility] Last Admin: 03/28/21 21:57 Dose: 50 mg Documented by: Risperidone (Risperidone 2 Mg Tablet) 2 mg PO BEDTIME [facility] Last Admin: 03/28/21 21:57 Dose: 2 mg Documented by: Trazodone HCl (Trazodone Hcl 50 Mg Tablet) 50 mg PO BEDTIME PRN PRN Reason: insomnia Last Admin: 03/28/21 22:05 Dose: 50 mg Documented by: Allergies Allergies Allergy/AdvReac Type Severity Reaction Status Date / Time No Known Allergies Allergy Verified 03/13/21 12:02 Assessment & Plan Assessment & Plan (1) Bipolar 1 disorder: Status: Acute Code(s): F31.9 - Bipolar disorder, unspecified Assessment and Plan: Amanda is a 21 y.o. Male who carries a dx of Bipolar I DO. He presented to [facility] [place] [facility] on 03/13 via EMS after being evaluated by N crisis in the community and placed on a Section 12a for manic sx in context of med non-adherence, as pt stopped taking depakote and self decreased risperdal from 1 mg BID to risperdal 1 mg QHS. Plan: CV 15 min checks on 1:1 due to in group room B for quarantine/isolation precautions riserpdal to 2 mg QHS depakote ER 500 mg QAM. Ordered labs for CMP, CBC, VPA level, A1C, lipid panel TSH aftercare planning with SW and team Continue monitoring medically. 03/20/21 Continue current plan of care Tentative completion of quarantine 03/23/21. Pt anxiously awaits. Support, educate. 03/21/21 Continue current plan of care. 03/22/21 Continue plan of care Quarantine to end 03/23/21. Integrate pt into milieu. 03/23/21 Review of bipolar disorder with pt-treatment options. [place] 300 mg hs. 03/24/21 Increase [place] to 300 mg bid. Support, educate, process concerns Aftercare planning. ? 03/25/21- continue current medications.? 03/28/21- Tolerating medication changes of 03/27/21. No changes today. Encourage milieu and group participation. 03/29/21 Atenolol 12.5 mg HS to address blood pressure elevations Continue current regime Pt requests discharge on 03/31. Will attend PHP Labs for 03/31. I spent 30 minutes with the patient and/or on the patient floor today, greater than?50% of which was spent counseling/coordinating care. Patient educated on: diagnosis, medication risk/benefits, therapeutic strategies and medical condition Informed Consent: understands and further education needed Reason for contiued inpatient stay Substantial Risk for: inability to function and rapid decompensation
[2021-03-29 17:11] VITALS: BP 125/75; PULSE 104; TEMP 36.9; O2SAT 100
[2021-03-29] MEDS: metFORMIN HCl ER 500 MG TAB.ER.24H PO (17:15)
[2021-03-29] MEDS: QUEtiapine Fumarate 50 MG TABLET PO (21:23)
[2021-03-29] MEDS: risperiDONE 2 MG TABLET PO (21:23)
[2021-03-29] MEDS: Divalproex Sodium ER 500 MG TAB.ER.24H PO (21:23)
[2021-03-29] MEDS: Melatonin 3 MG TABLET PO (21:23)
[2021-03-29] MEDS: atenoloL 25 MG TABLET 12.5 MG PO (21:24)
[2021-03-29] MEDS: traZODone HCL 50 MG TABLET PO (21:35)
[2021-03-30] MEDS: LORazepam 0.5 MG TABLET PO ×2 (08:26→20:26)
[2021-03-30] MEDS: Lithium Carbonate 300 MG CAPSULE PO ×2 (08:26→20:26)
[2021-03-30] MEDS: hydrOXYzine HCL 50 MG TABLET PO ×2 (08:27→20:26)
[2021-03-30 08:55] VITALS: BP 113/73; PULSE 64; RESP 18; TEMP 36.3; O2SAT 98
--- NOTE | 2021-03-30 17:02 | HO.PSYCHPN ---
Subjective Subjective Date of Service: 03/30/21 Reason For Visit: psychiatric symptoms Subjective Notes: Conditional Voluntary Healthcare Proxy: No Guardianship: No Medical Problems Affecting Mental Status: No Interim History: BP improved 125/75 and 113/73. Labs on 03/31-Ponce, TSH, CMP Pt reports no adverse effects from Atenolol. Feeling well, Has decided to wait for discharge until 04/03 to allow more milieu/group time along with time for education and medication adjustment. Team reports pt is still somewhat isolative and not engaged enough in milieu. Medication Compliance: Yes Side effects from medications: No Attending Groups: Intermittent Review of Systems Acute medical concerns: No Medical Review of Systems: unchanged Review of Systems Psychiatric: Reports abnormal sleep pattern, Reports anxiety, Reports depression, Reports difficulty concentrating and Reports suicidal ideation (denies) Mental Status Exam Mental Status Exam Patient Appearance: Appropriate Patient Orientation: Person, Place, Time and Situation Level of Consciousness: Alert Patient Behavior: Talkative, Cooperative, Anxious, Distractible and Good Eye Contact Mood Description: Anxious Affect Description: Anxious Patient Cognition Impaired: No Ability to Follow Directions: Good Speech Pattern: Spontaneous Speech Memory Description: Remote Impaired and Episodic Impaired Hallucinations: None Delusions: Not Present Perceptual Disturbances: Depersonalization Thought Process: Distracted and Rumination Thought Content: positive for Racing, positive for Circumstantial, positive for Perseveration, positive for Thought Blocking and positive for Suicidal Ideation (denies) Depressive Symptoms: Increased Anxiety and Difficulty Concentrating Judgement: Fair Diagnostics Vital Signs (24Hr): Vital Signs - 24 hr 03/29/21 17:11 03/30/21 08:55 Temperature 98.4 F 97.3 F Pulse Rate 104 H 64 Respiratory Rate 18 Blood Pressure 125/75 113/73 Pulse Oximetry 100 98 BMI result Body Mass Index 27.8 Labs Results: 03/20/21 18:02 03/27/21 08:08 Medications Medications Current Medications Acetaminophen (Acetaminophen 325 Mg Tablet) 650 mg PO Q6H PRN PRN Reason: Headache/Pain Mild Scale (1-3) Al Hydroxide/Mg Hydroxide (Magnesium Hydrox/Alum Hydrox 30 Ml Oral.Susp) 30 ml PO Q6H PRN PRN Reason: Heartburn/Nausea Atenolol (Atenolol 25 Mg Tablet) 12.5 mg PO BEDTIME [facility]; Protocol Last Admin: 03/29/21 21:24 Dose: 12.5 mg Documented by: Divalproex Sodium (Divalproex Sodium Er 500 Mg Tab.Er.24h) 500 mg PO BEDTIME [facility] Last Admin: 03/29/21 21:23 Dose: 500 mg Documented by: Hydroxyzine HCl (Hydroxyzine Hcl 50 Mg Tablet) 50 mg PO BID [facility] Last Admin: 03/30/21 08:27 Dose: 50 mg Documented by: Ponce Carbonate (Ponce Carbonate 300 Mg Capsule) 300 mg PO BID [facility] Last Admin: 03/30/21 08:26 Dose: 300 mg Documented by: Lorazepam (Lorazepam 0.5 Mg Tablet) 0.5 mg PO BID [facility] Last Admin: 03/30/21 08:26 Dose: 0.5 mg Documented by: Magnesium Hydroxide (Milk Of Magnesia 30 Ml Oral.Susp) 30 ml PO DAILY PRN PRN Reason: Constipation Melatonin (Melatonin 3 Mg Tablet) 3 mg PO BEDTIME [facility] Last Admin: 03/29/21 21:23 Dose: 3 mg Documented by: Metformin HCl (Metformin Hcl Er 500 Mg Tab.Er.24h) 500 mg PO DAILY@1700 [facility] Last Admin: 03/29/21 17:15 Dose: 500 mg Documented by: Quetiapine Fumarate (Quetiapine Fumarate 50 Mg Tablet) 50 mg PO BEDTIME [facility] Last Admin: 03/29/21 21:23 Dose: 50 mg Documented by: Risperidone (Risperidone 2 Mg Tablet) 2 mg PO BEDTIME [facility] Last Admin: 03/29/21 21:23 Dose: 2 mg Documented by: Trazodone HCl (Trazodone Hcl 50 Mg Tablet) 50 mg PO BEDTIME PRN PRN Reason: insomnia Last Admin: 03/29/21 21:35 Dose: 50 mg Documented by: Allergies Allergies Allergy/AdvReac Type Severity Reaction Status Date / Time No Known Allergies Allergy Verified 03/13/21 12:02 Assessment & Plan Assessment & Plan (1) Bipolar 1 disorder: Status: Acute Code(s): F31.9 - Bipolar disorder, unspecified Assessment and Plan: Amanda is a 21 y.o. Male who carries a dx of Bipolar I DO. He presented to [facility] [place] [facility] on 03/13 via EMS after being evaluated by N crisis in the community and placed on a Section 12a for manic sx in context of med non-adherence, as pt stopped taking depakote and self decreased risperdal from 1 mg BID to risperdal 1 mg QHS. Plan: CV 15 min checks on 1:1 due to in group room B for quarantine/isolation precautions riserpdal to 2 mg QHS depakote ER 500 mg QAM. Ordered labs for CMP, CBC, VPA level, A1C, lipid panel TSH aftercare planning with SW and team Continue monitoring medically. 03/20/21 Continue current plan of care Tentative completion of quarantine 03/23/21. Pt anxiously awaits. Support, educate. 03/21/21 Continue current plan of care. 03/22/21 Continue plan of care Quarantine to end 03/23/21. Integrate pt into milieu. 03/23/21 Review of bipolar disorder with pt-treatment options. [place] 300 mg hs. 03/24/21 Increase [place] to 300 mg bid. Support, educate, process concerns Aftercare planning. ? 03/25/21- continue current medications.? 03/28/21- Tolerating medication changes of 03/27/21. No changes today. Encourage milieu and group participation. 03/30/21- Labs in a.m. Ponce, CMP, TSH Encourage milieu involvement Education. I spent 20 minutes with the patient and/or on the patient floor today, greater than?50% of which was spent counseling/coordinating care. Patient educated on: medication risk/benefits and medical condition Informed Consent: understands and further education needed Reason for contiued inpatient stay Substantial Risk for: inability to function and rapid decompensation
[2021-03-30] MEDS: metFORMIN HCl ER 500 MG TAB.ER.24H PO (17:35)
[2021-03-30 18:00] VITALS: BP 148/73; PULSE 104; TEMP 36.7
[2021-03-30] MEDS: Melatonin 3 MG TABLET PO (20:26)
[2021-03-30] MEDS: Divalproex Sodium ER 500 MG TAB.ER.24H PO (20:26)
[2021-03-30] MEDS: QUEtiapine Fumarate 50 MG TABLET PO (20:26)
[2021-03-30] MEDS: risperiDONE 2 MG TABLET PO (20:26)
[2021-03-30] MEDS: atenoloL 25 MG TABLET 12.5 MG PO (20:26)
[2021-03-31 06:00] VITALS: BP 118/59; PULSE 60; RESP 16; TEMP 37.1; O2SAT 96
[2021-03-31] MEDS: hydrOXYzine HCL 50 MG TABLET PO ×2 (08:24→20:19)
[2021-03-31] MEDS: LORazepam 0.5 MG TABLET PO ×2 (08:24→20:19)
[2021-03-31] MEDS: Lithium Carbonate 300 MG CAPSULE PO (08:24)
[2021-03-31 09:15] LABS: Lithium 0.54 mmol/L (0.60-1.20)
[2021-03-31 09:22] LABS: Alanine Aminotransferase 19 U/L (0-40); Alkaline Phosphatase 70 U/L (39-117); Anion Gap 12 (12-20); Aspartate Amino Transferase 13 U/L (5-37); Bilirubin Total 0.5 mg/dL (0.0-1.0); Blood Urea Nitrogen 16 mg/dL (9-16); Calcium 9.5 mg/dL (8.4-10.2); Carbon Dioxide 26 mmol/L (22-29); Chloride 105 mmol/L (96-108); Creatinine Clr Calc Pharmacy 122.8; Estimated Glomerular Filt Rate > 60; Glucose Random 79 mg/dL (60-115); Potassium 4.7 mmol/L (3.3-5.1); Sodium 138 mmol/L (135-145); Total Protein 6.6 g/dL (6.5-8.0)
[2021-03-31 09:42] LABS: Thyroid Stimulating Hormone 2.44 uIU/mL (0.32-4.0)
[2021-03-31] MEDS: metFORMIN HCl ER 500 MG TAB.ER.24H PO (17:09)
--- NOTE | 2021-03-31 17:15 | HO.PSYCHPN ---
Subjective Subjective Date of Service: 03/31/21 Reason For Visit: psychiatric symptoms Subjective Notes: Conditional Voluntary Healthcare Proxy: No Guardianship: No Medical Problems Affecting Mental Status: No Interim History: Reports anxiety as a 5. Goal for pt is a 3. Reports overall feeling some improvement. Labs WNL. Wall sub therapeutic Medication Compliance: Yes Side effects from medications: No Attending Groups: Intermittent Review of Systems Acute medical concerns: No Medical Review of Systems: unchanged Review of Systems Psychiatric: Reports abnormal sleep pattern, Reports anxiety, Reports depression, Reports difficulty concentrating and Reports suicidal ideation (denies) Mental Status Exam Mental Status Exam Patient Appearance: Appropriate Patient Orientation: Person, Place, Time and Situation Level of Consciousness: Alert Patient Behavior: Talkative, Cooperative, Anxious, Distractible and Good Eye Contact Mood Description: Anxious Affect Description: Anxious Patient Cognition Impaired: No Ability to Follow Directions: Good Speech Pattern: Spontaneous Speech Memory Description: Remote Impaired and Episodic Impaired Hallucinations: None Delusions: Not Present Perceptual Disturbances: Depersonalization Thought Process: Distracted and Rumination Thought Content: positive for Racing, positive for Circumstantial, positive for Perseveration, positive for Thought Blocking and positive for Suicidal Ideation (denies) Depressive Symptoms: Increased Anxiety and Difficulty Concentrating Judgement: Fair Diagnostics Vital Signs (24Hr): Vital Signs - 24 hr 03/30/21 18:00 03/31/21 06:00 Temperature 98.0 F 98.7 F Pulse Rate 104 H 60 Respiratory Rate 16 Blood Pressure 148/73 H 118/59 L Pulse Oximetry 96 BMI result Body Mass Index 27.8 Labs Results: 03/20/21 18:02 03/31/21 08:09 Labs: Laboratory Results - last 48 hr 03/31/21 03/31/21 03/31/21 08:09 08:09 08:09 Sodium 138 Potassium 4.7 Chloride 105 Carbon Dioxide 26 Anion Gap 12 BUN 16 D Creatinine 1.03 Estim Creat Clear Calc 122.8 Estimated GFR > 60 Random Glucose 79 Calcium 9.5 Total Bilirubin 0.5 AST 13 D ALT 19 Alkaline Phosphatase 70 Total Protein 6.6 Albumin 4.0 TSH 2.44 Wall 0.54 L Medications Medications Current Medications Acetaminophen (Acetaminophen 325 Mg Tablet) 650 mg PO Q6H PRN PRN Reason: Headache/Pain Mild Scale (1-3) Al Hydroxide/Mg Hydroxide (Magnesium Hydrox/Alum Hydrox 30 Ml Oral.Susp) 30 ml PO Q6H PRN PRN Reason: Heartburn/Nausea Atenolol (Atenolol 25 Mg Tablet) 12.5 mg PO BEDTIME [facility]; Protocol Last Admin: 03/30/21 20:26 Dose: 12.5 mg Documented by: Divalproex Sodium (Divalproex Sodium Er 500 Mg Tab.Er.24h) 500 mg PO BEDTIME [facility] Last Admin: 03/30/21 20:26 Dose: 500 mg Documented by: Hydroxyzine HCl (Hydroxyzine Hcl 50 Mg Tablet) 50 mg PO BID [facility] Last Admin: 03/31/21 08:24 Dose: 50 mg Documented by: Wall Carbonate (Wall Carbonate 300 Mg Capsule) 300 mg PO BID [facility] Last Admin: 03/31/21 08:24 Dose: 300 mg Documented by: Lorazepam (Lorazepam 0.5 Mg Tablet) 0.5 mg PO BID [facility] Last Admin: 03/31/21 08:24 Dose: 0.5 mg Documented by: Magnesium Hydroxide (Milk Of Magnesia 30 Ml Oral.Susp) 30 ml PO DAILY PRN PRN Reason: Constipation Melatonin (Melatonin 3 Mg Tablet) 3 mg PO BEDTIME [facility] Last Admin: 03/30/21 20:26 Dose: 3 mg Documented by: Metformin HCl (Metformin Hcl Er 500 Mg Tab.Er.24h) 500 mg PO DAILY@1700 [facility] Last Admin: 03/31/21 17:09 Dose: 500 mg Documented by: Quetiapine Fumarate (Quetiapine Fumarate 50 Mg Tablet) 50 mg PO BEDTIME [facility] Last Admin: 03/30/21 20:26 Dose: 50 mg Documented by: Risperidone (Risperidone 2 Mg Tablet) 2 mg PO BEDTIME [facility] Last Admin: 03/30/21 20:26 Dose: 2 mg Documented by: Trazodone HCl (Trazodone Hcl 50 Mg Tablet) 50 mg PO BEDTIME PRN PRN Reason: insomnia Last Admin: 03/29/21 21:35 Dose: 50 mg Documented by: Allergies Allergies Allergy/AdvReac Type Severity Reaction Status Date / Time No Known Allergies Allergy Verified 03/13/21 12:02 Assessment & Plan Assessment & Plan (1) Bipolar 1 disorder: Status: Acute Code(s): F31.9 - Bipolar disorder, unspecified Assessment and Plan: Amanda is a 21 y.o. Male who carries a dx of Bipolar I DO. He presented to [facility] [place] [facility] on 12/27 via EMS after being evaluated by N crisis in the community and placed on a Section 12a for manic sx in context of med non-adherence, as pt stopped taking depakote and self decreased risperdal from 1 mg BID to risperdal 1 mg QHS. Plan: CV 15 min checks on 1:1 due to in group room B for quarantine/isolation precautions riserpdal to 2 mg QHS depakote ER 500 mg QAM. Ordered labs for CMP, CBC, VPA level, A1C, lipid panel TSH aftercare planning with SW and team Continue monitoring medically. 03/20/21 Continue current plan of care Tentative completion of quarantine 03/23/21. Pt anxiously awaits. Support, educate. 03/21/21 Continue current plan of care. 03/22/21 Continue plan of care Quarantine to end 03/23/21. Integrate pt into milieu. 03/23/21 Review of bipolar disorder with pt-treatment options. Wall 300 mg hs. 03/24/21 Increase Wall to 300 mg bid. Support, educate, process concerns Aftercare planning. ? 03/25/21- continue current medications.? 03/28/21- Tolerating medication changes of 03/27/21. No changes today. Encourage milieu and group participation. 03/30/21- Labs in a.m. Wall, CMP, TSH Encourage milieu involvement Education. 03/31/21-Reports some improvement Increase Wall to 300 mg a.m. 600 mg hs I spent 25 minutes with the patient and/or on the patient floor today, greater than?50% of which was spent counseling/coordinating care. Patient educated on: medication risk/benefits and therapeutic strategies Informed Consent: understands and further education needed Reason for contiued inpatient stay Substantial Risk for: inability to function and rapid decompensation
[2021-03-31 19:58] VITALS: BP 124/59; PULSE 80; RESP 16; TEMP 36.1; O2SAT 97
[2021-03-31] MEDS: Lithium Carbonate 300 MG CAPSULE 600 MG PO (20:16)
[2021-03-31] MEDS: risperiDONE 2 MG TABLET PO (20:16)
[2021-03-31] MEDS: Melatonin 3 MG TABLET PO (20:16)
[2021-03-31] MEDS: Divalproex Sodium ER 500 MG TAB.ER.24H PO (20:17)
[2021-03-31] MEDS: QUEtiapine Fumarate 50 MG TABLET PO (20:17)
[2021-03-31] MEDS: atenoloL 25 MG TABLET 12.5 MG PO (20:18)
[2021-03-31] MEDS: traZODone HCL 50 MG TABLET PO (20:21)
[2021-04-01 06:00] VITALS: BP 107/58; PULSE 56; RESP 14; TEMP 36.2; O2SAT 99
[2021-04-01] MEDS: LORazepam 0.5 MG TABLET PO ×2 (08:39→20:08)
[2021-04-01] MEDS: hydrOXYzine HCL 50 MG TABLET PO ×2 (08:39→20:09)
[2021-04-01] MEDS: Lithium Carbonate 300 MG CAPSULE PO (08:39)
--- NOTE | 2021-04-01 13:29 | P.PNPSI_ITS ---
Subjective Subjective Date of Service: 04/01/21 Reason For Visit: psychiatric symptoms Interim History: Patient says that he has doing okay. Mammography Tech asked if he finds himself alone in his room a bit more to which he says yes but only because he feels very ready to go home and hopes it is soon. Patient said it is hard to tell of his depressions any better or any different. He denies any SI at all. He does say his anxiety has gotten better. Patient has no complaints and no other requests. Mental Status Exam Mental Status Exam Narrative: Patient Appearance:?Appropriate Patient Orientation:?Person, Place, Time and Situation Level of Consciousness:?Alert Patient Behavior:? Cooperative, calm, Good Eye Contact Mood Description:? better Affect Description:?euthymic Patient Cognition Impaired:?No Ability to Follow Directions:?Good Speech Pattern:?Spontaneous Speech Memory Description:?Remote Impaired and Episodic Impaired Hallucinations:?None Delusions:?Not Present Perceptual Disturbances:?hx of Depersonalization Thought Process:?goal oriented, organized Thought Content:? Denies any SI, HI. Mostly thinking about when he can discharge Judgement:?Fair Diagnostics Vital Signs (24Hr): Vital Signs - 24 hr 03/31/21 19:58 04/01/21 06:00 Temperature 97.0 F 97.2 F Pulse Rate 80 56 Respiratory Rate 16 14 Blood Pressure 124/59 L 107/58 L Pulse Oximetry 97 99 BMI result Body Mass Index 27.8 Labs Results: 03/20/21 18:02 03/31/21 08:09 Labs: Laboratory Results - last 48 hr 03/31/21 03/31/21 03/31/21 08:09 08:09 08:09 Sodium 138 Potassium 4.7 Chloride 105 Carbon Dioxide 26 Anion Gap 12 BUN 16 D Creatinine 1.03 Estim Creat Clear Calc 122.8 Estimated GFR > 60 Random Glucose 79 Calcium 9.5 Total Bilirubin 0.5 AST 13 D ALT 19 Alkaline Phosphatase 70 Total Protein 6.6 Albumin 4.0 TSH 2.44 [place] 0.54 L Medications Medications Current Medications Acetaminophen (Acetaminophen 325 Mg Tablet) 650 mg PO Q6H PRN PRN Reason: Headache/Pain Mild Scale (1-3) Al Hydroxide/Mg Hydroxide (Magnesium Hydrox/Alum Hydrox 30 Ml Oral.Susp) 30 ml PO Q6H PRN PRN Reason: Heartburn/Nausea Atenolol (Atenolol 25 Mg Tablet) 12.5 mg PO BEDTIME [facility]; Protocol Last Admin: 03/31/21 20:18 Dose: 12.5 mg Documented by: Divalproex Sodium (Divalproex Sodium Er 500 Mg Tab.Er.24h) 500 mg PO BEDTIME [facility] Last Admin: 03/31/21 20:17 Dose: 500 mg Documented by: Hydroxyzine HCl (Hydroxyzine Hcl 50 Mg Tablet) 50 mg PO BID [facility] Last Admin: 04/01/21 08:39 Dose: 50 mg Documented by: [place] Carbonate ([place] Carbonate 300 Mg Capsule) 300 mg PO DAILY [facility] Last Admin: 04/01/21 08:39 Dose: 300 mg Documented by: [place] Carbonate ([place] Carbonate 300 Mg Capsule) 600 mg PO BEDTIME [facility] Last Admin: 03/31/21 20:16 Dose: 600 mg Documented by: Lorazepam (Lorazepam 0.5 Mg Tablet) 0.5 mg PO BID [facility] Last Admin: 04/01/21 08:39 Dose: 0.5 mg Documented by: Magnesium Hydroxide (Milk Of Magnesia 30 Ml Oral.Susp) 30 ml PO DAILY PRN PRN Reason: Constipation Melatonin (Melatonin 3 Mg Tablet) 3 mg PO BEDTIME [facility] Last Admin: 03/31/21 20:16 Dose: 3 mg Documented by: Metformin HCl (Metformin Hcl Er 500 Mg Tab.Er.24h) 500 mg PO DAILY@1700 [facility] Last Admin: 03/31/21 17:09 Dose: 500 mg Documented by: Quetiapine Fumarate (Quetiapine Fumarate 50 Mg Tablet) 50 mg PO BEDTIME [facility] Last Admin: 03/31/21 20:17 Dose: 50 mg Documented by: Risperidone (Risperidone 2 Mg Tablet) 2 mg PO BEDTIME [facility] Last Admin: 03/31/21 20:16 Dose: 2 mg Documented by: Trazodone HCl (Trazodone Hcl 50 Mg Tablet) 50 mg PO BEDTIME PRN PRN Reason: insomnia Last Admin: 03/31/21 20:21 Dose: 50 mg Documented by: Allergies Allergies Allergy/AdvReac Type Severity Reaction Status Date / Time No Known Allergies Allergy Verified 03/13/21 12:02 Assessment & Plan Assessment & Plan (1) Bipolar 1 disorder: Status: Acute Code(s): F31.9 - Bipolar disorder, unspecified Assessment and Plan: Amanda is a 21 y.o. Male who carries a dx of Bipolar I DO. He presented to [facility] [place] [facility] on 03/13 via EMS after being evaluated by N crisis in the community and placed on a Section 12a for manic sx in context of med non-adherence, as pt stopped taking depakote and self decreased risperdal from 1 mg BID to risperdal 1 mg QHS. Plan: CV 15 min checks on 1:1 due to in group room B for quarantine/isolation precautions riserpdal to 2 mg QHS depakote ER 500 mg QAM. Ordered labs for CMP, CBC, VPA level, A1C, lipid panel TSH aftercare planning with SW and team Continue monitoring medically. 03/20/21 Continue current plan of care Tentative completion of quarantine 03/23/21. Pt anxiously awaits. Support, educate. 03/21/21 Continue current plan of care. 03/22/21 Continue plan of care Quarantine to end 03/23/21. Integrate pt into milieu. 03/23/21 Review of bipolar disorder with pt-treatment options. [place] 300 mg hs. 03/24/21 Increase [place] to 300 mg bid. Support, educate, process concerns Aftercare planning. ? 03/25/21- continue current medications.? 03/28/21- Tolerating medication changes of 03/27/21. No changes today. Encourage milieu and group participation. 03/30/21- Labs in a.m. [place], CMP, TSH Encourage milieu involvement Education. 03/31/21-Reports some improvement Increase [place] to 300 mg a.m. 600 mg hs 04/01/21 Patient says that anxiety is definitely better. Denies any SI No complaints or requests -no change to current treatment plan I spent minutes with the patient and/or on the patient floor today, greater than?50% of which was spent counseling/coordinating care. Reason for contiued inpatient stay Substantial Risk for: med/psych decompensation
[2021-04-01] MEDS: metFORMIN HCl ER 500 MG TAB.ER.24H PO (17:19)
[2021-04-01 18:00] VITALS: BP 128/66; PULSE 95; RESP 16
[2021-04-01] MEDS: Divalproex Sodium ER 500 MG TAB.ER.24H PO (20:08)
[2021-04-01] MEDS: Melatonin 3 MG TABLET PO (20:08)
[2021-04-01] MEDS: traZODone HCL 50 MG TABLET PO (20:08)
[2021-04-01] MEDS: atenoloL 25 MG TABLET 12.5 MG PO (20:08)
[2021-04-01] MEDS: QUEtiapine Fumarate 50 MG TABLET PO (20:08)
[2021-04-01] MEDS: risperiDONE 2 MG TABLET PO (20:08)
[2021-04-01] MEDS: Lithium Carbonate 300 MG CAPSULE 600 MG PO (20:09)
[2021-04-02 06:00] VITALS: BP 101/47; PULSE 48; RESP 16; TEMP 36.4; O2SAT 97
[2021-04-02] MEDS: LORazepam 0.5 MG TABLET PO ×2 (08:12→20:55)
[2021-04-02] MEDS: hydrOXYzine HCL 50 MG TABLET PO ×2 (08:12→20:55)
[2021-04-02] MEDS: Lithium Carbonate 300 MG CAPSULE PO (08:13)
--- NOTE | 2021-04-02 16:01 | P.PNPSI_ITS ---
Subjective Subjective Date of Service: 04/02/21 Reason For Visit: psychiatric symptoms Interim History: Patient reports that he continues to be overall doing well. He did go to group today. He says anxiety is much better and is looking forward to discharging home. He denies any SI or HI or AVH. Says he is eating and sleeping well Mental Status Exam Mental Status Exam Narrative: Patient Appearance:?Appropriate Patient Orientation:?Person, Place, Time and Situation Level of Consciousness:?Alert Patient Behavior:? Cooperative, calm, Good Eye Contact Mood Description:? good Affect Description:?euthymic Patient Cognition Impaired:?No Ability to Follow Directions:?Good Speech Pattern:?Spontaneous Speech Hallucinations:?None Delusions:?Not Present Perceptual Disturbances:?hx of Depersonalization Thought Process:?goal oriented, organized Thought Content:? Denies any SI, HI.? Mostly thinking about when he can discharge Judgement:?Fair Diagnostics Vital Signs (24Hr): Vital Signs - 24 hr 04/01/21 18:00 04/02/21 06:00 Temperature 97.5 F Pulse Rate 95 48 L Respiratory Rate 16 16 Blood Pressure 128/66 101/47 L Pulse Oximetry 97 BMI result Body Mass Index 27.8 Labs Results: 03/20/21 18:02 03/31/21 08:09 Medications Medications Current Medications Acetaminophen (Acetaminophen 325 Mg Tablet) 650 mg PO Q6H PRN PRN Reason: Headache/Pain Mild Scale (1-3) Al Hydroxide/Mg Hydroxide (Magnesium Hydrox/Alum Hydrox 30 Ml Oral.Susp) 30 ml PO Q6H PRN PRN Reason: Heartburn/Nausea Atenolol (Atenolol 25 Mg Tablet) 12.5 mg PO BEDTIME [facility]; Protocol Last Admin: 04/01/21 20:08 Dose: 12.5 mg Documented by: Divalproex Sodium (Divalproex Sodium Er 500 Mg Tab.Er.24h) 500 mg PO BEDTIME [facility] Last Admin: 04/01/21 20:08 Dose: 500 mg Documented by: Hydroxyzine HCl (Hydroxyzine Hcl 50 Mg Tablet) 50 mg PO BID [facility] Last Admin: 04/02/21 08:12 Dose: 50 mg Documented by: [address] Carbonate ([address] Carbonate 300 Mg Capsule) 300 mg PO DAILY [facility] Last Admin: 04/02/21 08:13 Dose: 300 mg Documented by: [address] Carbonate ([address] Carbonate 300 Mg Capsule) 600 mg PO BEDTIME [facility] Last Admin: 04/01/21 20:09 Dose: 600 mg Documented by: Lorazepam (Lorazepam 0.5 Mg Tablet) 0.5 mg PO BID [facility] Last Admin: 04/02/21 08:12 Dose: 0.5 mg Documented by: Magnesium Hydroxide (Milk Of Magnesia 30 Ml Oral.Susp) 30 ml PO DAILY PRN PRN Reason: Constipation Melatonin (Melatonin 3 Mg Tablet) 3 mg PO BEDTIME [facility] Last Admin: 04/01/21 20:08 Dose: 3 mg Documented by: Metformin HCl (Metformin Hcl Er 500 Mg Tab.Er.24h) 500 mg PO DAILY@1700 [facility] Last Admin: 04/01/21 17:19 Dose: 500 mg Documented by: Quetiapine Fumarate (Quetiapine Fumarate 50 Mg Tablet) 50 mg PO BEDTIME [facility] Last Admin: 04/01/21 20:08 Dose: 50 mg Documented by: Risperidone (Risperidone 2 Mg Tablet) 2 mg PO BEDTIME [facility] Last Admin: 04/01/21 20:08 Dose: 2 mg Documented by: Trazodone HCl (Trazodone Hcl 50 Mg Tablet) 50 mg PO BEDTIME PRN PRN Reason: insomnia Last Admin: 04/01/21 20:08 Dose: 50 mg Documented by: Allergies Allergies Allergy/AdvReac Type Severity Reaction Status Date / Time No Known Allergies Allergy Verified 03/13/21 12:02 Assessment & Plan Assessment & Plan (1) Bipolar 1 disorder: Status: Acute Code(s): F31.9 - Bipolar disorder, unspecified Assessment and Plan: Amanda is a 21 y.o. Male who carries a dx of Bipolar I DO. He presented to [facility] [place] [facility] on 03/13 via EMS after being evaluated by N crisis in the community and placed on a Section 12a for manic sx in context of med non-adherence, as pt stopped taking depakote and self decreased risperdal from 1 mg BID to risperdal 1 mg QHS. Plan: CV 15 min checks on 1:1 due to in group room B for quarantine/isolation precautions riserpdal to 2 mg QHS depakote ER 500 mg QAM. Ordered labs for CMP, CBC, VPA level, A1C, lipid panel TSH aftercare planning with SW and team Continue monitoring medically. 03/20/21 Continue current plan of care Tentative completion of quarantine 03/23/21. Pt anxiously awaits. Support, educate. 03/21/21 Continue current plan of care. 03/22/21 Continue plan of care Quarantine to end 03/23/21. Integrate pt into milieu. 03/23/21 Review of bipolar disorder with pt-treatment options. [address] 300 mg hs. 03/24/[address] to 300 mg bid. Support, educate, process concerns Aftercare planning. ? 03/25/21- continue current medications.? 03/28/21- Tolerating medication changes of 03/27/21. No changes today. Encourage milieu and group participation. 03/30/21- Labs in a.m. [address], CMP, TSH Encourage milieu involvement Education. 03/31/21-Reports some improvement Increase [address] to 300 mg a.m. 600 mg hs 04/01/21 Patient says that anxiety is definitely better. Denies any SI No complaints or requests -no change to current treatment plan 04/02/21 remains stable; anxiety much better. Denies any SI No complaints or requests -no change to current treatment plan I spent minutes with the patient and/or on the patient floor today, greater than?50% of which was spent counseling/coordinating care. Reason for contiued inpatient stay Substantial Risk for: other
[2021-04-02] MEDS: metFORMIN HCl ER 500 MG TAB.ER.24H PO (16:39)
[2021-04-02 17:06] VITALS: BP 116/56; PULSE 78; TEMP 36.9; O2SAT 97
[2021-04-02] MEDS: Lithium Carbonate 300 MG CAPSULE 600 MG PO (20:52)
[2021-04-02] MEDS: risperiDONE 2 MG TABLET PO (20:53)
[2021-04-02] MEDS: Divalproex Sodium ER 500 MG TAB.ER.24H PO (20:54)
[2021-04-02] MEDS: QUEtiapine Fumarate 50 MG TABLET PO (20:54)
[2021-04-02] MEDS: Melatonin 3 MG TABLET PO (20:55)
[2021-04-02] MEDS: atenoloL 25 MG TABLET 12.5 MG PO (20:56)
[2021-04-02] MEDS: traZODone HCL 50 MG TABLET PO (21:03)
[2021-04-02 21:17] VITALS: BP 114/63; PULSE 98; RESP 16; TEMP 36.2; O2SAT 96
[2021-04-03 06:00] VITALS: BP 108/60; PULSE 58; RESP 14; TEMP 36.6; O2SAT 99
[2021-04-03] MEDS: LORazepam 0.5 MG TABLET PO (08:34)
[2021-04-03] MEDS: Lithium Carbonate 300 MG CAPSULE PO (08:34)
[2021-04-03] MEDS: hydrOXYzine HCL 50 MG TABLET PO (08:34)
[2021-04-03 08:48] LABS: Lithium 0.88 mmol/L (0.60-1.20)
--- NOTE | 2021-04-03 16:55 | PM.PSYDC ---
DS: Providers Provider Date of Service: 04/03/21 Date of admission: 03/18/21 15:36 Date of discharge: 04/03/21 Primary care physician: Kingston Ag MD Admitting clinician: Maggie Alvarado Attending physician on admission: Maggie Alvarado Attending physician on discharge: Artemio Diaz Discharging clinician: Dorothy Coleman DS: Diagnosis Discharge Diagnosis (1) Bipolar 1 disorder: Status: Acute DS: Medications Discharge Medications Home Medications: Home Medications Medication Instructions Recorded Confirmed melatonin 3 mg tablet 3 mg PO BEDTIME 03/14/21 03/14/21 metformin 500 mg tablet,extended 1 tab PO DAILY 03/14/21 03/14/21 release 24 hr Previous Rx's Medication Instructions Recorded atenolol 25 mg tablet 12.5 mg PO BEDTIME #15 tab 04/03/21 divalproex 500 mg tablet,extended 500 mg PO BEDTIME #30 tab 04/03/21 release 24 hr hydroxyzine HCl 50 mg tablet 50 mg PO BID #60 tab 04/03/21 lithium carbonate 300 mg capsule 300 mg PO DAILY #30 cap 04/03/21 lithium carbonate 300 mg capsule 600 mg PO BEDTIME #60 cap 04/03/21 lorazepam 0.5 mg tablet 0.5 mg PO BID #14 tab 04/03/21 quetiapine 50 mg tablet 50 mg PO BEDTIME #30 tab 04/03/21 risperidone 2 mg tablet 2 mg PO BEDTIME #30 tab 04/03/21 trazodone 50 mg tablet 50 mg PO BEDTIME PRN #30 tab 04/03/21 Mental Status Exam Mental Status Exam Patient Appearance: Appropriate Patient Orientation: Person, Place, Time and Situation Level of Consciousness: Alert Patient Behavior: Talkative, Cooperative, Anxious, Distractible and Good Eye Contact Mood Description: Anxious Affect Description: Anxious Patient Cognition Impaired: No Ability to Follow Directions: Good Speech Pattern: Spontaneous Speech Memory Description: Remote Impaired and Episodic Impaired Hallucinations: None Delusions: Not Present Perceptual Disturbances: Depersonalization Thought Process: Distracted and Rumination Thought Content: positive for Racing, positive for Circumstantial, positive for Perseveration, positive for Thought Blocking and positive for Suicidal Ideation (denies) Depressive Symptoms: Increased Anxiety and Difficulty Concentrating Judgement: Fair Data Data Completed and Pending Completed studies during hospitalization [Text1]: 03/31/21 03/31/21 03/31/21 08:09 08:09 08:09 Sodium 138 Potassium 4.7 Chloride 105 Carbon Dioxide 26 Anion Gap 12 BUN 16 D Creatinine 1.03 Estim Creat Clear Calc 122.8 Estimated GFR > 60 Random Glucose 79 Calcium 9.5 Total Bilirubin 0.5 AST 13 D ALT 19 Alkaline Phosphatase 70 Total Protein 6.6 Albumin 4.0 TSH 2.44 Valproic Acid [place] 0.54 L 04/03/21 04/03/21 08:08 08:08 Sodium Potassium Chloride Carbon Dioxide Anion Gap BUN Creatinine Estim Creat Clear Calc Estimated GFR Random Glucose Calcium Total Bilirubin AST ALT Alkaline Phosphatase Total Protein Albumin TSH Valproic Acid 40.0 L [place] 0.88 DS: Summary Hospital Course Hospital Course: Admission to adult psychiatry to address symptoms of bipolar disorder, kvng and COVID-19. Care plan, medication regime and out patient plan of care prior to admission were reviewed. Education was provided regarding management of symptoms, medications and side effects. Nursing and manager social media worked with Amanda on collateral contacts, care planning, education regarding symptom management, medications and discharge planning. Amanda had no acute complications from COVID-19. Upon admission he was manic and was very gregarious, interactive with the team and had high energy. As he stabilized he became more isolative and withdrawn, not wanting to participate in the milieu. A differential diagnosis of schizoaffective disorder bipolar type was discussed with him and education was provided. Depakote and Risperdal were continued. [place], Lorazepam for anxiety and low dose Seroquel for short term mgt of anxiety and sleep were initiated. Low dose atenolol was initiated for mgt of hypertensive sx. Time spent discussing smoking cessation with patient: 3 to 10 minutes Status at Discharge Functional status at discharge: independent ambulation Overall status at discharge: patient is progressing back to baseline Time Spent with Patient Time attestation: Total time spent providing and/or coordinating discharge services: 35 Time spent: Greater than 30 minutes Discharge Plan Discharge Patient Disposition: Home, Self-Care Discharge Diagnosis: Bipolar Disorder COVID-19, resolved Referrals: [facility] ([facility]) [Other] - 04/05/21 12:00 pm (This is your initial phone intake assessment. Once completed, you will be given a start date/time to begin the virtual partial hospitalization program) Olga Kinsey (therapy intake) [Other] - 04/06/21 1:00 pm (This appointment is in-office) Cynthia Yanez (psychiatric medication evaluation) [Other] - 05/02/21 2:30 pm (This is a virtual Telehealth appointment) Cynthia Yanez (psychiatric medication management) [Other] - 05/25/21 11:20 am (This is a virtual Telehealth appointment) Kingston Ag MD [Primary Care Provider] - 04/10/21 9:00 am (IN OFFICE OFFICE IS LOCATED AT [address] [place] [address]) Discharge Medications: New trazodone 50 mg Tablet 50 mg PO BEDTIME PRN (Reason: insomnia) Qty: 30 0RF atenolol 25 mg Tablet 12.5 mg PO BEDTIME Qty: 15 0RF Protocol: Hold for SBP/HR < HOLD for SBP < : 90 HOLD for HR < : 60 hydroxyzine HCl 50 mg Tablet 50 mg PO BID Qty: 60 0RF risperidone 2 mg Tablet 2 mg PO BEDTIME Qty: 30 0RF lorazepam 0.5 mg Tablet 0.5 mg PO BID Qty: 14 4RF lithium carbonate 300 mg Capsule 600 mg PO BEDTIME Qty: 60 0RF lithium carbonate 300 mg Capsule 300 mg PO DAILY Qty: 30 0RF divalproex 500 mg Tablet Extended Release 24 Hr 500 mg PO BEDTIME Qty: 30 0RF quetiapine 50 mg Tablet 50 mg PO BEDTIME Qty: 30 0RF Discontinued trazodone 50 mg tablet 1 tab PO BEDTIME 0RF hydroxyzine HCl 25 mg tablet 1 tab PO BID 0RF risperidone 1 mg tablet 1 tab PO BID 0RF Discharge Orders: Discharge Order (Routine); Ordered 04/03/21 Ordered By: Dorothy Coleman Diet: advance to usual diet Activity on Discharge: As tolerated Stand Alone Forms: Patient Portal Discharge page, Community Support Care Plan Goals: Mood Stabilization Health Concerns: Bipolar I Plan of Treatment: Attend scheduled appointments Take medications as directed Assessment: non suicidal, non psychotic Discharge Date/Time: 04/03/21 13:10
== END 2021-04-03 13:10 | disposition home or self-care (01) | DRG 885 ==
LOC: HO.ED 03-18 15:52 → HO.PM5 03-18 15:53
PROVIDERS: Clinical Nurse Specialist Psychiatric/Mental Health; Nurse Practitioner Family; Registered Nurse; Admitting Provider Psychiatry & Neurology Psychiatry; Emergency Provider Emergency Medicine; PCP Internal Medicine; Visit Provider Clinical Nurse Specialist Psychiatric/Mental Health, Adult
DX: F31.9 Bipolar disorder, unspecified (principal); U07.1 COVID-19; Z23 Encounter for immunization; Z91.14 Patient's other noncompliance with medication regimen; Z79.84 Long term (current) use of oral hypoglycemic drugs; Z79.899 Other long term (current) drug therapy
CPT/HCPCS: 36415; 80048; 80053; 80061; 80076; 80164; 80178; 80307; 82565; 82947; 83036; 84443; 85025; 87635; 90686; 99285

== ENCOUNTER 2021-04-05 12:46 | Outpatient (RCR) | payer OTHER, MEDICAID, SELFPAY ==
--- NOTE | 2021-04-06 11:23 | PC.NURSE ---
Patient was scheduled to start the PHP program today however patient did not show up to the program. I called and spoke to Amanda who asked if he can be discharged from the program as he stated, I really don't want to do it . Patient aware that the program is voluntary and if he did not want to attend that was his choice. Patient denied SI, AH, VH , or thoughts to harm himself. Notified M/ who referred patient to [facility]. [facility] staff are aware.
== END 2021-04-06 09:41 | disposition home or self-care (01) ==
LOC: HO.PHPA 12:46
PROVIDERS: PCP Internal Medicine; Visit Provider Psychiatry & Neurology Psychiatry
DX: F31.12 Bipolar disorder, current episode manic without psychotic features, moderate (principal)
CPT/HCPCS: 90791

== ENCOUNTER 2021-04-12 09:45 | Outpatient (RCR) | payer OTHER, MEDICAID, SELFPAY ==
[2021-04-12 11:08] VITALS: BMI 27.1
--- NOTE | 2021-04-12 13:00 | PC.ADMIT ---
Patient is a 21 year old male who has a dx of Bipolar d/o and was referred to [facility] by [facility] inpatient unit for behavioral health where he was admitted d/t mood instability. Patient reportedly was residing at [facility] and stopped taking his psychiatric medications. As a result Amanda presented with manic symptoms thus staff at [facility] sectioned 12'd patient to [facility] ED for evaluation and patient was subsequently admitted for treatment. In addition, patient was tested for Covid in the ED and tested positive. Patient initially was going to start [facility] on 04/06/21 however patient changed his mind however after talking with his parents patient decided to seek treatment at [facility] and was reassessed for [facility] and started today. Patient is alert and oriented x4. Calm and cooperative. Denied SI, HI, AH, VH, or paranoid thoughts. Emailed patient a copy of his safety plan. Medications reconciled with patient and patient's d/c paperwork from inpatient unit. Patient reports he did not receive a prescription for [place] 300 mg in the am however is taking [place] 600 mg at HS. Confirmed this with the pharmacy. Kyleigh Bautista NP is aware and will discuss with patient starting [place] 300 mg in the am in addition to HS. Patient is taking his medications as prescribed.
--- NOTE | 2021-04-12 13:58 | P.HPPSP_ITS ---
[facility] Date of Service: 04/12/21 Chief Complaint: Bipolar D/o, Unspecified, r/o Schizoaffective D/o Sources of Information: patient interviewed, chart reviewed and crisis/core team assessment reviewed [facility] Healthcare Proxy: No Guardianship: No Medical Problems Affecting Mental Status: No Narrative: Patient is a 21-year-old single male, referred to [facility] as a step-down from . Was initially admitted inpatient for bipolar disorder/kvng on 03/19/2021. Once stabilized, was discharged to home, and referred here. Currently denies any symptoms of kvng, hoping to of pain and practice healthy coping skills/stress management while here. First experienced kvng December 2019. Symptoms included decreased need for sleep, feeling invincible, pressured speech. Diagnosed with Bipolar I during inpatient admission at [facility] in Dec 2019. Since Jan 2021, endorses hx racing thoughts, sense of going a mile a minute , pressured speech. Anderson he was invincible but unable to elaborate. Denies high risk sexual bx or spending, denies A/VH. Denies any of these since dc from . Rehospitalized in February 2020 for similar presentation. Since then has been inconsistently adherent to medications, according to mother. Hospital notes state client had stopped taking Depakote and had decreased Risperdal dose on his own prior to most recent hospitalization. Currently denies SI, HI, A/VH. Denies decreased need for sleep, racing thoughts, distractibility. No pressured speech evident. Reports feeling stable currently but admits rapid decompensation when not taking medications consistently as prescribed. Medication Trials: risperdal: did not take consistently, due to weight gain. Has tried other medications, does not remember names. Patient has been hospitalized 3 times due to symptoms of kvng, in 12/2019, 02/2020, and 03/2021. No history of PHP. Had 1 respite stay prior to recent inpatient stay. Had a therapist through [facility], but was attending inconsistently. Now starting therapy at [facility]. Awaiting new prescriber a [facility]. Raised by both parents, along with 1 sister. Parents when he was 7. He is currently living with mother and sister, describes them as supportive. Met developmental milestones as expected. Graduated high school, some college. Plans to attend [employer] in the fall, interested in [employer]. Familial history of anxiety and depression on maternal side of family. Past Psychiatric History: -M5 IPLOC 03/2021. -Pt has hx of IPLOC at [facility] 12/2019 and 02/2020. -Per [facility] crisis eval 02/15/20, pt presented with ?decompensated behaviors,? disposition was IPLOC. Evaluated 12/2019 due to ?responding to internal stimuli and not making sense.? Disposition was IPLOC. Medical Evaluation Reviewed: Yes - Denies medical issues. Had been on Metformin for weight loss, prescribed by PCP - was effective and he is no longer taking. [facility] Medical History (Updated 04/11/21 @ 00:02 by Background Daemon) Bipolar disorder Family History: Maternal familial hx of anxiety and depression. Believes mother and sister have been in treatment for anxiety but does not know details or whether they used medication. Social History: -Pt lives with mom and sister (age 23), visits dad on weekends. Lived with both parents until age 7, then parents split up. -Graduated from [employer]. He attended [employer] for 3 semesters, but says he did poorly in school and did not finish. Attributes this to anxiety and poor focus. Single, unemployed. Plans to attend [employer] in fall 2021. Substance History: Denies all substance use Trauma History: denies Diagnostics Vital Signs (24Hr): BMI result Verd[place] 4 Body Mass Index Verdana 4 27.1 Verdana 4 Verdana 4 Meds/Allergies Meds Narrative: Trazadone, 50 mg qhs Risperidone, 2 mg, qhs Quetiapine, 50mg qhs Lorazepam, 0.5mg BID [place], 300mg qAM, 600 mg qhs Depakote, 500mg qhs Allergies Allergies Allergy/AdvReac Type Severity Reaction Status Date / Time No Known Allergies Allergy Verified 03/13/21 12:02 Mental Status Exam Mental Status Exam Narrative: Well-developed, well-groomed male, in NAD. No involuntary movements, no tics/tremors noted. Fully attentive during interview. No evidence of responding to any type of internal stimuli observed. Patient Appearance: Appropriate Patient Orientation: Person, Place, Time and Situation Level of Consciousness: Awake, Appropriate and Alert Patient Behavior: Appropriate, Cooperative and Good Eye Contact Mood Description: Appropriate Affect Description: Appropriate and Anxious Patient Cognition Impaired: No Ability to Follow Directions: Good Speech Pattern: Clear, Spontaneous Speech and Coherent Memory Description: Intact Hallucinations: None Delusions: Not Present Thought Process: Intact and Goal Oriented Thought Content: positive for Intact and positive for Linear Depressive Symptoms: Increased Anxiety, Diff. Making Decisions, Loss of Int. in Activity, Unhappiness and Difficulty Concentrating Judgement: Fair Telehealth Telehealth Location of provider rendering services: practice address Location of patient: address on file Patient Identification confirmed using: Name, : Yes Telehealth method: video Patient verbally consented to treatment: Yes Patient verbally consented to billing insurance company: Yes Patient informed of any privacy concerns related to visit: Yes Time spent with patient (mins): 45 Assessment & Plan Assessment & Plan (1) Bipolar 1 disorder: Status: Acute Code(s): F31.9 - Bipolar disorder, unspecified Assessment and Plan: Client attending PHP as a step-down from [facility]. Appears anxious during interview. Denies any thought of harm to self or others, denies any grandiosity or other manic symptoms. States that he has a history of not taking medications as prescribed, thus resulting in manic symptoms, which have resulted in several inpatient hospitalizations. Discussed current medication regimen, and rationale for each medication. He states that he understands. Reports he is using a med organizer, and is working to remember taking them as prescribed. Plan 1. Pt advised to return to [place] dose prescribed at pa from [facility]: 300mg qAM and 600mg qhs 2. Continue current meds including Lorazepam, Quetiapine, Risperidone, Tra zadone, Depakote 3. Obtain Li trough level Saturday04/16/21 4. Continue with [facility] plan of care. 5. Follow-up as per protocol. Patient educated on: diagnosis, medication risk/benefits and therapeutic strategies Informed Consent: understands Reason for continued partial hosp. stay Substantial Risk for: inability to function, rapid decompensation and med/psych decompensation Certification I certify that partial hospital treatment is medically necessary due to the symptoms and problems resulting from the patient's mental illness and the failure to treat the patient at the partial hospital level of care would likely result in the patient requiring inpatient psychiatric care which could not be prevented at a less intensive level of care.
--- NOTE | 2021-04-13 08:55 | PC.NURSE ---
I called pt before the start of program (8:35am) to discuss commitment to treatment after he didn't show for the last group yesterday. He said I woke him up by calling, and I apologized for this. He shared that he really is not interested in PHP, but doesn't want to disappoint his mother, who wants him to attend. He did acknowledge also that he feels he might benefit from the daily structure the program provides. I validated his struggle and informed him that he would be discharged if there was a pattern of nonattendance, and asked him if he needs some time (the day) to think about whether he wants to commit to PHP, or if he wants to try staying the day to see what he thinks after being in the groups. He said he does want to try staying the day, and then to assess whether he can commit to staying.
--- NOTE | 2021-04-13 09:47 | PC.NURSE ---
Patient called this morning and stated he did not want to attend the program. Monique Fernandes aware and will call patient to f/u. Patient to be discharged from the program today.
--- NOTE | 2021-04-13 10:19 | PC.NURSE ---
Pt called and left a message after community meeting. He acknowledged that the didn't attend community meeting, and said he has decided the program is not for him and that he wants to be discharged.
--- NOTE | 2021-04-13 15:59 | PC.NURSE ---
Pt emailed the program secretary office clerk asking who to speak to about the possibility of returning to the program. I consulted with staff (Mary and Georgina Weber) and then called him letting him know that we have already discharged him. I gave him Georgina Puentes's number to call for reassessment. He was polite and reported being in no current distress.
== END 2021-04-13 09:55 | disposition home or self-care (01) ==
LOC: HO.PHPA 09:45
PROVIDERS: Visit Provider Psychiatry & Neurology Psychiatry
DX: F31.9 Bipolar disorder, unspecified (principal); Z79.899 Other long term (current) drug therapy
CPT/HCPCS: 90791; 90853

== ENCOUNTER 2021-04-29 10:22 | Outpatient (REF) | payer OTHER, SELFPAY ==
[2021-04-29 11:32] LABS: Lithium 0.72 mmol/L (0.60-1.20)
== END 2021-04-29 10:23 | disposition home or self-care (01) ==
LOC: HO.LAB 10:22
PROVIDERS: PCP Internal Medicine; Visit Provider Nurse Practitioner Psychiatric/Mental Health
DX: F31.9 Bipolar disorder, unspecified (principal); Z79.899 Other long term (current) drug therapy
CPT/HCPCS: 36415; 80178

== ENCOUNTER 2021-05-01 08:45 | Outpatient (RCR) | payer OTHER, MEDICAID, SELFPAY ==
[2021-04-19 11:41] VITALS: BMI 27.1
--- NOTE | 2021-04-19 11:42 | PC.ADMIT ---
Patient initially started PHP on 04/06/21 however changed his mind. He attempted to restart PHP on 04/12/21 and decided that he did not want to continue with the program. Patient changed his mind afterwards and reached out to the program stating he wanted the treatment and asked if he could come back. In addition, patient also stated that his family specifically his mother convinced him to come back and get the treatment. Patient reassessed on 04/18/21 and at that time staff had a discussion with patient regarding his commitment to the program and expectations moving forward. Patient continued wanting to restart the program to continue treatment for mood stabilization after his inpatient hospitalization. Patient is a 21 year old male who has a dx of Bipolar d/o and was referred to [facility] by [facility] where he was admitted d/t mood instability. Patient prior to hospitalization was reportedly residing at [facility] and stopped taking his psychiatric medications while there. As a result Amanda presented with manic symptoms thus staff at [facility] sectioned 12'd patient to [facility] for evaluation and patient was subsequently admitted for treatment. In addition, patient was tested for Covid in the ED and tested positive. Patient is alert and oriented x4. Calm and cooperative. Presents with anxious mood and affect. Denied SI. Patient medications reconciled with patient, patient's pharmacy and patient records. Patient reports taking medications as prescribed. Copy of patient's safety plan sent to patient via email.
--- NOTE | 2021-04-19 16:51 | HO.PS.ADMBH ---
[facility] Date of Service: 04/19/21 Chief Complaint: Bipolar D/o, Unspecified, r/o Schizoaffective D/o Sources of Information: patient interviewed, chart reviewed and crisis/core team assessment reviewed [facility] Guardianship: No Medical Problems Affecting Mental Status: No Narrative: Client is a 21-year-old single male, referred to [facility] as a step-down from . Was initially admitted inpatient for bipolar disorder/kvng on 03/19/2021. He had started [facility] program last week, and decided to terminate after one day. He has decided that he would like to return to [facility], as he wishes to focus on management of his bipolar disorder and prevention of relapse. Client 1st experienced kvng and December of 2019. Symptoms included decreased need for sleep, feeling invincible, pressured speech. He had been diagnosed with bipolar 1 during an inpatient level of care stay at [facility] that month. Since January 2021, he has experienced racing thoughts, pressured speech. He denies any symptoms of kvng/hypomania today. Medication trials: risperdal: Weight gain Several other medications, does not remember names. Amanda was raised by both of his parents along with 1 sister. Parents when he was 7. Describes family as supportive. He lives with mother and sister, visits father on weekends. Graduated high school, attended some college. Currently not working. Current medications include atenolol, Depakote, lithium, lorazepam, Risperdal, quetiapine, and trazodone. He reports he feels these medications are working well to help stabilize his mood. He is hoping to gain tools while in this program that will help him prevent a relapse. Past Psychiatric History: - IPLOC 03/2021. -Pt has hx of IPLOC at [facility] 12/2019 and 02/2020. -Per [facility] crisis eval 02/15/20, pt presented with ?decompensated behaviors,? disposition was IPLOC. Evaluated 12/2019 due to ?responding to internal stimuli and not making sense.? Disposition was IPLOC. Medical Evaluation Reviewed: Yes [facility] Medical History Bipolar disorder Family History: Maternal familial hx of anxiety and depression. Believes mother and sister have been in treatment for anxiety but does not know details or whether they used medication. Social History: -Pt lives with mom and sister (age 23), visits dad on weekends. Lived with both parents until age 7, then parents split up. -Graduated from [employer]. He attended [employer] for [employer] for 3 semesters, but says he did poorly in school and did not finish. Attributes this to anxiety and poor focus. Single, unemployed. Plans to attend [employer] in fall 2021. Substance History: denies Trauma History: denies Diagnostics Vital Signs (24Hr): BMI result Body Mass Index 27.1 Meds/Allergies Allergies Allergies Allergy/AdvReac Type Severity Reaction Status Date / Time No Known Allergies Allergy Verified 03/13/21 12:02 Mental Status Exam Mental Status Exam Narrative: Well-developed, well-groomed male, in NAD. No involuntary movements, no tics/tremors noted. Patient Appearance: Well Grooomed and Appropriate Patient Orientation: Person, Place, Time and Situation Level of Consciousness: Awake, Appropriate and Alert Patient Behavior: Appropriate, Cooperative and Good Eye Contact Mood Description: Appropriate Affect Description: Appropriate and Anxious Patient Cognition Impaired: No Ability to Follow Directions: Good Speech Pattern: Clear, Appropriate, Spontaneous Speech and Coherent Memory Description: Intact Hallucinations: None Delusions: Not Present Thought Process: Intact and Goal Oriented Thought Content: positive for Intact, positive for Goal Oriented and positive for Linear Depressive Symptoms: Increased Anxiety, Diff. Making Decisions, Loss of Int. in Activity, Unhappiness and Difficulty Concentrating Judgement: Fair Telehealth Telehealth Location of provider rendering services: practice address Location of patient: address on file Patient Identification confirmed using: Name, : Yes Telehealth method: video Patient verbally consented to treatment: Yes Patient verbally consented to billing insurance company: Yes Patient informed of any privacy concerns related to visit: Yes Time spent with patient (mins): 45 Assessment & Plan Assessment & Plan (1) Bipolar 1 disorder: Status: Acute Code(s): F31.9 - Bipolar disorder, unspecified Assessment and Plan: Discussed current medication regimen. Amanda states he feels medications are working well at this time, denies any symptoms of kvng or hypomania. No SI/HI, no safety concern at this time. He is concerned about relapse of symptoms, as he has had 3 inpatient psychiatric admissions within past year and a half. He is hopeful to continue to stabilize on medications, and learn how to manage symptoms so that he will not relapse and require another inpatient level of care stay. Plan 1. Admitted to [facility]. 2. Continue with current medications as prescribed. 3. Follow [facility] plan of care. 4. Follow-up as per protocol. Patient educated on: diagnosis, medication risk/benefits and therapeutic strategies Informed Consent: understands Reason for continued partial hosp. stay Substantial Risk for: inability to function, rapid decompensation and med/psych decompensation Certification I certify that partial hospital treatment is medically necessary due to the symptoms and problems resulting from the patient's mental illness and the failure to treat the patient at the partial hospital level of care would likely result in the patient requiring inpatient psychiatric care which could not be prevented at a less intensive level of care.
--- NOTE | 2021-04-26 16:29 | P.PNPSP_ITS ---
Subjective Subjective Date of Service: 04/26/21 Reason For Visit: Bipolar D/o, Unspecified, r/o Schizoaffective D/o Guardianship: No Medical Problems Affecting Mental Status: No Interim History: Amanda reports sleeping well, overall feels mood is more stabilized. Missed morning dose of lithium, as he ran out. Requesting refills for several medications. Denies any thoughts of self-harm, reports he feels fairly stable. Medication Compliance: Yes Side effects from medications: No Attending Groups: Yes Review of Systems Acute medical concerns: Yes Medical Review of Systems: unchanged Review of Systems Review of Systems Reports adequate sleep, good appetite, mood improved, more stable. Yes all other systems are reviewed and are negative Constitutional: Reports no additional constitutional complaints Psychiatric: Reports abnormal sleep pattern, Reports anxiety, Reports depression, Reports difficulty concentrating and Reports suicidal ideation (den ies) Mental Status Exam Mental Status Exam Narrative: Well developed, well-nourished male, in NAD. Patient Appearance: Well Grooomed and Appropriate Patient Orientation: Person, Place, Time and Situation Level of Consciousness: Awake, Appropriate and Alert Patient Behavior: Appropriate, Cooperative and Good Eye Contact Mood Description: Appropriate and Depressed (Reports symptoms are improving.) Affect Description: Appropriate Patient Cognition Impaired: No Ability to Follow Directions: Excellent Speech Pattern: Clear, Appropriate and Coherent Memory Description: Intact Hallucinations: None Delusions: Not Present Thought Process: Intact, Goal Oriented and Linear Thought Content: positive for Intact, positive for Goal Oriented and positive for Linear Depressive Symptoms: Increased Anxiety, Diff. Making Decisions, Loss of Int. in Activity and Unhappiness Judgement: Fair Diagnostics Vital Signs (24Hr): BMI result Body Mass Index 27.1 Assessment & Plan Assessment & Plan (1) Bipolar 1 disorder: Status: Acute Code(s): F31.9 - Bipolar disorder, unspecified Assessment and Plan: Reports mood feels as if it is starting to stabilize into a more baseline pattern for him. Denies any symptoms of hypomania or kvng, continues with some depressed mood, although is improving. Requesting refills for several medications. Denies SI at this time, no safety concern. Plan 1. Refill for lithium 300 at a.m. 600 mg at bedtime sent, 30 day supply. 2. Refill for Risperdal 2 mg at bedtime, 30 day supply. 3. Refill for trazodone 50 mg at bedtime p.r.n. for sleep, 30 day supply. 4. Follow-up as per protocol. 5. Continue with current [facility] plan of care. Patient educated on: diagnosis, medication risk/benefits and therapeutic strategies Informed Consent: understands Reason for contiued partial hosp. stay Substantial Risk for: inability to function and med/psych decompensation Certification I certify that partial hospital treatment is medically necessary due to the symptoms and problems resulting from the patient's mental illness and the failure to treat the patient at the partial hospital level of care would likely result in the patient requiring inpatient psychiatric care which could not be prevented at a less intensive level of care. I spent minutes with the patient and/or on the patient floor today, greater than?50% of which was spent counseling/coordinating care. Discharge Plan Discharge Attending provider: Douglas Hooper Medications: New lithium carbonate 300 mg capsule See Rx Instructions .ROUTE .COMPLEX 30 Days Qty: 90 0RF Rx Instructions: Take 300mg (1 cap) in morning, and 600mg (2 caps) at bedtime. risperidone 2 mg tablet 2 mg PO BEDTIME 30 Days Qty: 30 0RF trazodone 50 mg tablet 50 mg PO BEDTIME PRN (Reason: sleep) 30 Days Qty: 30 0RF Discontinued melatonin 3 mg tablet 3 mg PO BEDTIME 0RF metformin 500 mg tablet extended release 24 hr 1 tab PO DAILY 0RF lithium carbonate 300 mg Capsule 600 mg PO BEDTIME Qty: 60 0RF lithium carbonate 300 mg Capsule 300 mg PO DAILY Qty: 30 0RF No Action trazodone 50 mg Tablet 50 mg PO BEDTIME PRN (Reason: insomnia) Qty: 30 0RF atenolol 25 mg Tablet 12.5 mg PO BEDTIME Qty: 15 0RF Protocol: Hold for SBP/HR < HOLD for SBP < : 90 HOLD for HR < : 60 hydroxyzine HCl 50 mg Tablet 50 mg PO BID Qty: 60 0RF risperidone 2 mg Tablet 2 mg PO BEDTIME Qty: 30 0RF lorazepam 0.5 mg Tablet 0.5 mg PO BID Qty: 14 4RF divalproex 500 mg Tablet Extended Release 24 Hr 500 mg PO BEDTIME Qty: 30 0RF quetiapine 50 mg Tablet 50 mg PO BEDTIME Qty: 30 0RF Telehealth Telehealth Location of provider rendering services: practice address Location of patient: address on file Patient Identification confirmed using: Name, : Yes Telehealth method: video Patient verbally consented to treatment: Yes Patient verbally consented to billing insurance company: Yes Patient informed of any privacy concerns related to visit: Yes Time spent with patient (mins): 15
--- NOTE | 2021-05-02 09:32 | PC.NURSE ---
Patient scheduled to discharge today. Feels ready for discharge. Denied SI or thoughts to harm himself. Reviewed patient medications with patient. Patient reports taking medications as prescribed. Medication education provided.
--- NOTE | 2021-05-02 11:42 | HO.PHPPROGNO ---
Subjective Subjective Date of Service: 05/02/21 Reason For Visit: Bipolar D/o, Unspecified, r/o Schizoaffective D/o Interim History: I evaluated the pt this morning and upon interview he reports I feel like i got a lot out of the program, im glad i did it. Today is his final day of [facility]. Says he is feeling good with the medications, does not want changes. Will f/u with OP psych provider at [facility], Cynthia Yanez. Says he doesnt take ativan, doesnt think he needs it, prefers hydroxyzine for anxiety. Feels stable, sleep is good. Has had two therapy appointments at [facility]. 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 Medication Compliance: Yes Side effects from medications: No Attending Groups: Yes Review of Systems Acute medical concerns: No Medical Review of Systems: unchanged Mental Status Exam Mental Status Exam Narrative: Well developed, well-nourished male, in NAD. Patient Appearance:?Well Groomed and Appropriate Patient Orientation:?Person, Place, Time and Situation Level of Consciousness:?Awake, Appropriate and Alert Patient Behavior:?Appropriate, Cooperative and Good Eye Contact Mood Description:?Appropriate and Depressed (Reports symptoms are improving.) Affect Description:?Appropriate Patient Cognition Impaired:?No Ability to Follow Directions:?Excellent Speech Pattern:?Clear, Appropriate and Coherent Memory Description:?Intact Hallucinations:?None Delusions:?Not Present Thought Process:?Intact, Goal Oriented and Linear Thought Content:?positive for Intact, positive for Goal Oriented and positive for Linear Insight: good Judgment:?Fair Diagnostics Vital Signs (24Hr): BMI result Body Mass Index 27.1 Assessment & Plan Assessment & Plan (1) Bipolar 1 disorder: Status: Acute Code(s): F31.9 - Bipolar disorder, unspecified Plan Reports mood is stable and at baseline for him.? Denies any symptoms of hypomania or kvng, denies depressed mood. Does not need medication refills, reports positive benefit, does not want changes. Denies SI at this time, no safety concern. Plan: 1. continue lithium 300 at a.m. 600 mg at bedtime sent, 30 day supply. Continue depakote 500 mg daily. Will have lab work monitored through OP provider at [facility]. 2. continue Risperdal 2 mg at bedtime, 30 day supply. 3. continue trazodone 50 mg at bedtime p.r.n. for sleep, 30 day supply. 4. Follow-up as per protocol. 5. Continue with current [facility] plan of care 6. Pt is stable for discharge. Patient educated on: diagnosis, medication risk/benefits and therapeutic strategies Informed Consent: understands Certification I certify that partial hospital treatment is medically necessary due to the symptoms and problems resulting from the patient's mental illness and the failure to treat the patient at the partial hospital level of care would likely result in the patient requiring inpatient psychiatric care which could not be prevented at a less intensive level of care. I spent minutes with the patient and/or on the patient floor today, greater than?50% of which was spent counseling/coordinating care. Discharge Plan Discharge Attending provider: Douglas Hooper Additional Instructions: Appointment with med provider Cynthia Yanez from [facility] today, 05/02/21 at 2:30pm, and on 05/25/21 at 11:20pm via Zoom. Appointment with therapist Maggie from [facility] on , 05/04/21 at 3pm. Go to [facility] or visit [facility] for support groups as discussed with staff. Medications: New lithium carbonate 300 mg capsule See Rx Instructions .ROUTE .COMPLEX 30 Days Qty: 90 0RF Rx Instructions: Take 300mg (1 cap) in morning, and 600mg (2 caps) at bedtime. trazodone 50 mg tablet 50 mg PO BEDTIME PRN (Reason: sleep) 30 Days Qty: 30 0RF Discontinued melatonin 3 mg tablet 3 mg PO BEDTIME 0RF metformin 500 mg tablet extended release 24 hr 1 tab PO DAILY 0RF lithium carbonate 300 mg Capsule 600 mg PO BEDTIME Qty: 60 0RF lithium carbonate 300 mg Capsule 300 mg PO DAILY Qty: 30 0RF No Action trazodone 50 mg Tablet 50 mg PO BEDTIME PRN (Reason: insomnia) Qty: 30 0RF atenolol 25 mg Tablet 12.5 mg PO BEDTIME Qty: 15 0RF Protocol: Hold for SBP/HR < HOLD for SBP < : 90 HOLD for HR < : 60 hydroxyzine HCl 50 mg Tablet 50 mg PO BID Qty: 60 0RF risperidone 2 mg Tablet 2 mg PO BEDTIME Qty: 30 0RF lorazepam 0.5 mg Tablet 0.5 mg PO BID Qty: 14 4RF divalproex 500 mg Tablet Extended Release 24 Hr 500 mg PO BEDTIME Qty: 30 0RF quetiapine 50 mg Tablet 50 mg PO BEDTIME Qty: 30 0RF Stand Alone Forms: Patient Portal Discharge page
--- NOTE | 2021-05-02 16:30 | PC.NURSE ---
I called and LM with staff at [facility] to relay a message to pt's new therapist, Maggie. Staff was unable to give me her extension, as their computer system was having issues, but they identified the therapist and said they would give her a message. I informed them that pt is stable emotionally and has discharged from [facility].
== END 2021-05-02 23:59 | disposition home or self-care (01) ==
LOC: HO.PHPA 08:45
PROVIDERS: Visit Provider Psychiatry & Neurology Psychiatry
DX: F31.9 Bipolar disorder, unspecified (principal); Z79.899 Other long term (current) drug therapy
CPT/HCPCS: 90791; 90853

== ENCOUNTER 2022-04-13 11:35 | Outpatient (REF) | payer OTHER, SELFPAY ==
[2022-04-13 11:50] LABS: MANUAL DIFF FLAG NO
[2022-04-13 12:51] LABS: Basophils Percent Auto 0.6 % (0-2); Eosinophils Absolute Auto 0.1 X10*3/uL (0.0-0.4); Eosinophils Percent Auto 1.9 % (0-4); Hematocrit 48.3 % (42.0-52.0); Hemoglobin 16.1 g/dl (14.0-18.0); Imm Gran Abs Auto 0.01 X10*3/uL (0.00-0.03); Imm Gran Pct Auto 0.2 % (0.0-0.4); Lymphocytes Absolute Auto 1.1 X10*3/uL (1.2-4.9); Lymphocytes Percent Auto 23.1 % (20-40); Mean Corpuscular HGB Conc 33.3 g/dl (31.0-36.0); Mean Corpuscular Hemoglobin 30.1 pg (27.0-33.0); Mean Corpuscular Volume 90.3 fL (80.0-98.0); Mean Platelet Volume 10.9 fL (9.4-12.4); Monocytes Absolute Auto 0.3 X10*3/uL (0.1-1.2); Monocytes Percent Auto 5.6 % (2-11); Neutrophils Absolute Auto 3.3 x10*3/uL (2.0-8.3); Neutrophils Percent Auto 68.6 % (45-73); Platelet Count 221 X10*3/uL (160-400); Red Blood Count 5.35 X10*6/uL (4.60-5.80); Red Cell Distribution Width 12.9 % (11.0-16.0); White Blood Count 4.9 X10*3/uL (4.8-10.8)
[2022-04-13 14:01] LABS: Lithium 0.56 mmol/L (0.60-1.20)
[2022-04-13 14:11] LABS: Anion Gap 13 (12-20); Blood Urea Nitrogen 10 mg/dL (9-16); Calcium 10.2 mg/dL (8.4-10.2); Carbon Dioxide 26 mmol/L (22-29); Chloride 105 mmol/L (96-108); Cholesterol 134 mg/dL; Estimated Glomerular Filt Rate > 60; Glucose Random 85 mg/dL (60-115); HDL Cholesterol 40 mg/dL; LDL Cholesterol Calculated 77 mg/dl; Potassium 4.8 mmol/L (3.3-5.1); Sodium 139 mmol/L (135-145); Triglycerides 89 mg/dL
[2022-04-13 14:28] LABS: Thyroid Stimulating Hormone 1.65 uIU/mL (0.32-4.0)
== END 2022-04-13 11:36 | disposition home or self-care (01) ==
LOC: HO.LAB 11:35
PROVIDERS: Visit Provider Nurse Practitioner Psychiatric/Mental Health
DX: F31.12 Bipolar disorder, current episode manic without psychotic features, moderate (principal)
CPT/HCPCS: 36415; 80048; 80061; 80178; 84443; 85025